=== PATIENT | female | born 1975 | race American Indian/Alaskan Native ===

== ENCOUNTER 2018-07-04 22:13 | Emergency (ER) | payer MEDICARE, SELFPAY ==
[2018-07-04 22:21] VITALS: BP 158/80; PULSE 91; RESP 16; TEMP 36.8; O2SAT 98; BMI 31.2
[2018-07-04 22:45] LABS: Bacteria Urine Few (2-10); Culture Indicated Urine Cult Not Indicated; RBC Urine 1-5/HPF (0-5/HPF); Squamous Epithelial Cell Urine 1-5 /HPF; WBC Urine 0-1/HPF (0-5/HPF)
[2018-07-04] MEDS: IBUPROFEN 400 MG TABLET 800 MG PO (22:45)
--- NOTE | 2018-07-04 22:46 | ED_ITS ---
HPI - Female Genitourinary General Chief complaint: Urogenital-Female Stated complaint: THINKS KIDNEY INFECTION Time Seen by Provider: 07/04/18 22:24 Source: patient Mode of arrival: ambulatory Limitations: no limitations History of Present Illness HPI Narrative: this a 42-year-old female comes to the emergency department with complaint of back /abdominal pain. Patient states that starting yesterday she has had some pain kind of in the left back flank area that radiates down towards her knee. She has not had any weakness or numbness. Today she also had 1 episode of cramping suprapubically. When she was about to urinate. Patient has not had dysuria, she has had maybe some frequency but only today. No incontinence, no urgency. No fevers, no nausea or vomiting. Patient had bladder infections in the past and states she does not typically have normal symptoms. She has not taken anything for pain today. She does take Plaquenil, has a history of lupus. Related Data Previous Rx's Medication Instructions Recorded penicillin V potassium 500 mg PO Q6H 7 Days #0 tab 04/23/16 Allergies Allergy/AdvReac Type Severity Reaction Status Date / Time cyclobenzaprine Allergy Unknown Verified 07/04/18 22:24 [From FLEXERIL] methocarbamol [METHOCARBAMOL] Allergy Unknown Verified 07/04/18 22:24 tramadol [TRAMADOL] Allergy Unknown Verified 07/04/18 22:24 acetaminophen Allergy Verified 07/04/18 22:24 [From Darvocet-N] propoxyphene Allergy Verified 07/04/18 22:24 [From Darvocet-N] Review of Systems Review of Systems All systems reviewed & are unremarkable except as noted in HPI and below Constitutional Denies chills and Denies fever(s) Cardiovascular Denies chest pain and Denies dyspnea Respiratory Denies dyspnea Gastrointestinal Gastrointestinal: Reports abdominal pain, Denies change in bowel habits, Reports cramping ( 1 time suprapubic), Denies diarrhea, Denies nausea and Denies vomiting Genitourinary Denies abnormal vaginal bleeding, Denies urinary frequency, Denies dysuria, Reports flank pain ( left back), Denies urinary hesitancy, Reports urinary urgency and Denies vaginal discharge Musculoskeletal Denies abnormal gait, Reports back pain, Denies muscle weakness, Reports radiating pain into limb ( left leg) and Denies tingling Neurologic Denies abnormal gait and Denies tingling Exam Narrative Exam Narrative: GENERAL: Alert and oriented x three, Well-nourished, well- appearing female in mild distress. HEENT: Head normocephalic, atraumatic, EOMI, pupils reactive, face symmetric, moist mucous membranes NECK: Supple, full range of motion CARDIOVASCULAR: Regular rate and rhythm without murmurs, rubs or gallops. RESPIRATORY: Breath sounds equal bilaterally, no wheezes rales or rhonchi. ABDOMEN: Soft, nontender. Normoactive bowel sounds all 4 quadrants. No guarding or rebound, rigidity, no mass : No CVA tenderness BACK: No cervical, thoracic or lumbar vertebral point tenderness. Patient has normal range of motion. Patient's gait is normal. Muscle strength is 5/5 in lower extremities EXTREMITIES: Normal range of motion, no clubbing or edema. Neurovascularly intact NEUROLOGICAL: Cranial nerves II through XII grossly intact. Moving all extremities SKIN: Warm, dry, no petechiae, no rashes or lesions. Initial Vital Signs Initial Vital Signs: Vital Signs Temperature 98.2 F 07/04/18 22:21 Pulse Rate 91 H 07/04/18 22:21 Respiratory Rate 16 07/04/18 22:21 Blood Pressure 158/80 H 07/04/18 22:21 Pulse Oximetry 98 07/04/18 22:21 Course Orders Ordered: ED Orders 07/04/18 22:20 Urine Microscopic Stat Discontinued Medications Ibuprofen (Advil) 800 mg PO NOW ONE Stop: 07/04/18 22:41 Last Admin: 07/04/18 22:45 Dose: 800 mg Vital Signs - 8 hr 07/04/18 22:21 07/04/18 23:27 Temperature 98.2 F Pulse Rate 91 H 73 Respiratory Rate 16 11 L Blood Pressure 158/80 H 133/76 Pulse Oximetry 98 99 MDM - Female Genitourinary Lab Data Lab Results 07/04/18 Range/Units 22:20 Urine RBC 1-5/hpf (0-5/HPF) Urine WBC 0-1/hpf (0-5/HPF) Ur Squamous Epith Cells 1-5 /hpf Urine Bacteria Few (2-10) H (None) Ur Culture Indicated? Cult not indicated Micro UA Comment Not Reportable Point of Care Testing Test Results Negative Urine Dip Bedside Urine Glucose Negative Bedside Urine Bilirubin - Negative Bedside Urine Ketone - Negative Urine Specific [place] 1.030 Bedside Urine Occult Blood ++ Bedside Urine pH 6.0 Bedside Urine Protein - Negative Bedside Urine Urobilinogen - Negative Bedside Urine Nitrite - Negative Bedside Urine Leukocytes - Negative Esterase Discharge Plan Departure Patient Disposition: Home Clinical Impression: Back pain Discharge Date/Time: 07/04/18 23:27 Interventions: ED Discharge Assessment Last Done: 07/04/18 23:27 Instructions: DI for Back Pain With Sciatica Activity Restrictions/Additional Instructions: Follow-up with primary care physician in the next 2-3 days for recheck. You may continue ibuprofen up to 800 mg every 8 hr as needed for pain. You may also take Tylenol up to a 1000 mg every 8 hr as needed for pain. Continue your home medications as prescribed. Return to the emergency department for fevers greater than 100.4, rapidly worsening pain, weakness or numbness of her extremities or difficulty with movement, persistent vomiting, black or bloody stools or other new or concerning symptoms. Prescriptions: No Action penicillin V potassium 500 MG tablet 500 mg PO Q6H 7 Days Qty: 0 RF: 0
[2018-07-04 23:27] VITALS: BP 133/76; PULSE 73; RESP 11; O2SAT 99
== END 2018-07-04 23:27 | disposition home or self-care (01) ==
PROVIDERS: Emergency Provider Emergency Medicine
DX: M54.9 Dorsalgia, unspecified (principal)
CPT/HCPCS: 81003; 81015; 81025; 99283

== ENCOUNTER 2018-08-04 07:29 | Emergency (ER) | payer MEDICARE, MEDICAID, SELFPAY ==
[2018-08-04 07:41] VITALS: BP 95/38; PULSE 84; RESP 14; TEMP 36.6; O2SAT 100; BMI 31.9
[2018-08-04 07:45] VITALS: BP 94/47; PULSE 69; RESP 17; O2SAT 100
[2018-08-04] MEDS: SODIUM CHLORIDE 0.9% 1,000 ML 1000 ML IV ×2 (07:46→08:36)
[2018-08-04 07:47] LABS: Add Manual Diff / Slide Review NO; Basophils Percent Auto 0.6 % (0-2); Eosinophils Percent Auto 2.7 % (2-4); Hematocrit 33.7 % (36-46); Hemoglobin 11.5 g/dL (12.0-16.0); Lymphocytes Percent Auto 28.3 % (25-40); Mean Corpuscular HGB Conc 34.2 % (30-36); Mean Corpuscular Hemoglobin 30.4 PG (26-34); Monocytes Percent Auto 7.2 % (3-14); Neutrophils Absolute Auto 7500 /uL (3000-5900); Neutrophils Percent Auto 61.2 % (50-75); Platelet Count 367 X10^3/uL (150-400); Red Blood Cell Count 3.78 X10^6/uL (4.0-5.2); Red Cell Distribution Width 14.4 % (11.6-14.8); White Blood Cell Count 12.3 X10^3/uL (4.5-11.0)
--- NOTE | 2018-08-04 07:48 | ED_ITS ---
HPI - Overdose General Chief Complaint: Toxicology Problem Stated Complaint: Overdose Time Seen by Provider: 08/04/18 07:29 Source: patient and EMS Mode of arrival: EMS Limitations: altered mental status History of Present Illness HPI Narrative: Patient is brought by EMS after family found her to be heavily sedated. Patient was given Narcan by the family, after which she admitted to recreationally snorting Percocet which she is worried was laced with fentanyl. Family called EMS, who gave the patient another mg of Narcan IV, and states that although the patient has been arousable and route, she did not really improve after their dose Narcan. Medics state that the patient is heavily drowsy if not being actively stimulated. Patient denies taking any other substances; she states that she uses Percocet regularly but not necessarily an every day basis. She denies drinking alcohol or using any other drugs such as methamphetamines or heroin, either concurrent with the episode tonight or on other occasions. She is not sure what time she took the Percocet. Patient denies any medical problems; she states she does not take any medications for anything on a regular basis. She has not been ill with anything recently she states. No chest pain, shortness of breath, nausea, vomiting, diarrhea, cough, fevers or other signs of illness. No other complaints at this time. Related Data Home Medications Medication Instructions Recorded Confirmed hydroxychloroquine 400 mg PO DAILY 08/04/18 hydroxyzine pamoate 50 mg PO TID PRN 08/04/18 08/04/18 tizanidine 4 mg PO BID PRN 08/04/18 08/04/18 tizanidine 8 mg PO BEDTIME PRN 08/04/18 08/04/18 zolpidem 5 mg PO BEDTIME PRN 08/04/18 08/04/18 Allergies Allergy/AdvReac Type Severity Reaction Status Date / Time cyclobenzaprine Allergy Unknown Verified 08/04/18 07:47 [From FLEXERIL] methocarbamol [METHOCARBAMOL] Allergy Unknown Verified 08/04/18 07:47 tramadol [TRAMADOL] Allergy Unknown Verified 08/04/18 07:47 acetaminophen Allergy Verified 08/04/18 07:47 [From Darvocet-N] propoxyphene Allergy Verified 08/04/18 07:47 [From Darvocet-N] Review of Systems Review of Systems All systems reviewed & are unremarkable except as noted in HPI and below Constitutional Denies chills, Denies fever(s), Denies lethargy and Denies weakness Eyes Denies change in vision, Denies eye discharge, Denies irritation and Denies loss of vision ENT Ears, Nose, Mouth, and Throat: Denies change in voice, Denies neck pain and Denies sore throat Cardiovascular Denies chest pain, Denies irregular heart rhythm, Denies lightheadedness, Denies palpitations, Denies dyspnea, Denies dyspnea on exertion and Denies orthopnea Respiratory Denies cough, Denies dyspnea, Denies dyspnea on exertion and Denies wheezing Gastrointestinal Gastrointestinal: Denies abdominal pain, Denies change in bowel habits, Denies diarrhea, Denies nausea and Denies vomiting Genitourinary Denies hematuria, Denies flank pain, Denies urinary incontinence and Denies urinary urgency Musculoskeletal Denies neck pain Integumentary/Breasts Denies pruritus, Denies erythema, Denies rash and Denies wounds Neurologic Denies confusion, Denies loss of vision and Denies weakness Psychiatric Denies anxiety, Denies confusion, Denies depression, Denies homicidal ideation and Denies suicidal ideation Endocrine Denies palpitations Hematologic/Lymphatic Denies easy bruising Allergic/Immunologic Denies wheezing PFSH Medical History Substance abuse (Acute) Surgical History No pertinent past surgical history (Acute) Social History Smoking Status: Current every day smoker alcohol intake: never substance use type: painkillers Exam Initial Vital Signs Initial Vital Signs: Vital Signs Temperature 97.8 F 08/04/18 07:41 Pulse Rate 84 08/04/18 07:41 Respiratory Rate 14 08/04/18 07:41 Blood Pressure 95/38 L 08/04/18 07:41 Pulse Oximetry 100 08/04/18 07:41 Const General: cooperative and well developed Nutritional Appearance: well nourished Orientation: awake and confused (Appears to partly be due to heavy drowsiness.) Other: Patient is heavily drowsy, but does arouse and answer questions with short answers. HENMT Head: normocephalic and atraumatic Ears: external ears normal and TM's normal bilaterally Nose: external nose normal and No nasal discharge Face and sinus: sinuses nontender, face symmetric, no sinus tenderness and No dry mucous membranes Mouth: oral mucosae normal and moist mucous membranes Teeth and gingiva: dentition normal Throat: tonsils normal and uvula midline Eyes General: appearance normal, both eyes and all related structures Eyelids: eyelids normal Conjunctivae: conjunctivae normal Sclera: sclerae normal Pupils: PERRL EOM: EOM intact bilaterally Neck Neck: normal visual inspection, trachea midline, No lymphadenopathy, No midline deformity and No JVD Lymphatic: No lymphedema Chest Chest: normal inspection of the chest Resp Effort & Inspection: normal respiratory effort, able to speak in complete sentences, no respiratory distress and no use of accessory muscles Auscultation: clear to auscultation bilaterally, no rales, no rhonchi and no wheezes Cardio Rate: regular rate Rhythm: regular rhythm Heart Sounds: no click, no gallops, no murmurs and no rubs Pulses: normal peripheral pulses GI Inspection: non-distended Palpation: soft, no hepatosplenomegaly, No guarding, No pulsatile mass and No tender Auscultation: normal bowel sounds Back/Spine/Pelvis Back: No CVA tenderness Cervical Spine: cervical ROM normal and No pain with cervical ROM Thoracic/Lumbar Spine: thoracic and lumbar spine normal to inspection Skin General: no rashes or lesions noted, No jaundice and No petechiae Neuro General: awake and no focal motor deficits Speech: speech normal Other: Heavy drowsiness, as noted above. Extrem General: full ROM, no clubbing, cyanosis or edema, no pedal edema and no calf tenderness Psych Appearance: well kempt Mental Status: mental status grossly normal Attitude: cooperative Thought Content: normal and suicidality Judgment: judgment good Course Course Narrative: The patient is observed in the emergency department, until she was found to be more awake and family had arrived. We have discussed that outpatient intervention to help with her substance abuse may be helpful to the patient. Patient and her family expressed understanding. Patient is stable for discharge home. The usual indications for return of been discussed. Orders Ordered: Discontinued Medications Baclofen (Lioresal) 5 mg PO NOW ONE Stop: 08/04/18 08:05 Last Admin: 08/04/18 08:22 Dose: Sodium Chloride (Normal Saline 0.9%) 1,000 mls @ 1,000 mls/hr IV BOLUS ONE Stop: 08/04/18 08:38 Last Infusion: 08/04/18 08:34 Dose: 0 mls/hr Admin: 08/04/18 07:46 Dose: 1,000 mls/hr Sodium Chloride (Normal Saline 0.9%) 1,000 mls @ 1,000 mls/hr IV BOLUS PRN PRN Reason: Fluid replacement Last Infusion: 08/04/18 09:30 Dose: 0 mls/hr Admin: 08/04/18 08:36 Dose: 1,000 mls/hr Lamotrigine (Lamictal) 150 mg PO NOW ONE Stop: 08/04/18 08:05 Last Admin: 08/04/18 08:21 Dose: Pantoprazole Sodium (Protonix) 20 mg PO NOW ONE Stop: 08/04/18 08:05 Last Admin: 08/04/18 08:21 Dose: Venlafaxine HCl (Effexor Xr) 75 mg PO DAILY NITA Vital Signs - 8 hr 08/04/18 07:41 08/04/18 07:45 08/04/18 08:02 Temperature 97.8 F Pulse Rate 84 69 81 Respiratory Rate 14 17 14 Blood Pressure 95/38 L Blood Pressure [Left Arm] 94/47 L 85/39 L Pulse Oximetry 100 100 100 08/04/18 08:22 08/04/18 08:30 Temperature Pulse Rate 72 74 Respiratory Rate 17 16 Blood Pressure Blood Pressure [Left Arm] 85/46 L 82/43 L Pulse Oximetry 100 100 MDM - Overdose Medical Records Attestation: I reviewed the patient's medical records. Lab Data Attestation: I reviewed the patient's lab results. Result diagrams: 08/04/18 07:25 08/04/18 07:25 Lab Results 08/04/18 08/04/18 08/04/18 Range/Units 07:25 07:25 07:25 WBC 12.3 H (4.5-11.0) X10^3/uL RBC 3.78 L (4.0-5.2) X10^6/uL Hgb 11.5 L (12.0-16.0) g/dL Hct 33.7 L (36-46) % MCV 89.0 (80-100) fL MCH 30.4 (26-34) PG MCHC 34.2 (30-36) % RDW 14.4 (11.6-14.8) % Plt Count 367 (150-400) X10^3/uL Neut % (Auto) 61.2 (50-75) % Lymph % (Auto) 28.3 (25-40) % [place] % (Auto) 7.2 (3-14) % Eos % (Auto) 2.7 (2-4) % Baso % (Auto) 0.6 (0-2) % Neut # (Auto) 7500 H (8001-8434) /uL Sodium 138 (137-145) mmol/L Potassium 3.9 (3.4-5.1) mmol/L Chloride 101 (98-107) mmol/L Carbon Dioxide 25 (22-32) mmol/L BUN 10 (7-17) mg/dL Creatinine 0.80 (0.52-1.04) mg/dL Estimated GFR > 60.0 (>60) mL/min BUN/Creatinine Ratio 12.5 (6-22) Glucose 94 (70-100) mg/dL Calcium 8.6 (8.4-10.2) mg/dL Total Bilirubin 0.3 (0.2-1.3) mg/dL AST 30 (14-36) IU/L ALT 27 (9-52) IU/L Alkaline Phosphatase 79 (38-126) U/L Total Protein 7.4 (6.3-8.2) g/dL Albumin 4.2 (3.5-5.0) g/dL Globulin 3.2 (1.7-4.1) g/dL Albumin/Globulin Ratio 1.3 (1.0-2.8) Urine Opiates Screen (Negative) Ur Oxycodone Screen (Negative) Urine Methadone Screen (Negative) Ur Barbiturates Screen (Negative) U Tricyclic Antidepress (Negative) Ur Phencyclidine Scrn (Negative) Ur Amphetamines Screen (Negative) U Methamphetamines Scrn (Negative) Ur MDMA Scrn (Ecstasy) (Negative) U Benzodiazepines Scrn (Negative) Urine Cocaine Screen (Negative) U Marijuana (THC) Screen (Negative) Ethyl Alcohol < 10 mg/dL 08/04/18 Range/Units 10:00 WBC (4.5-11.0) X10^3/uL RBC (4.0-5.2) X10^6/uL Hgb (12.0-16.0) g/dL Hct (36-46) % MCV (80-100) fL MCH (26-34) PG MCHC (30-36) % RDW (11.6-14.8) % Plt Count (150-400) X10^3/uL Neut % (Auto) (50-75) % Lymph % (Auto) (25-40) % [place] % (Auto) (3-14) % Eos % (Auto) (2-4) % Baso % (Auto) (0-2) % Neut # (Auto) (9631-3298) /uL Sodium (137-145) mmol/L Potassium (3.4-5.1) mmol/L Chloride (98-107) mmol/L Carbon Dioxide (22-32) mmol/L BUN (7-17) mg/dL Creatinine (0.52-1.04) mg/dL Estimated GFR (>60) mL/min BUN/Creatinine Ratio (6-22) Glucose (70-100) mg/dL Calcium (8.4-10.2) mg/dL Total Bilirubin (0.2-1.3) mg/dL AST (14-36) IU/L ALT (9-52) IU/L Alkaline Phosphatase (38-126) U/L Total Protein (6.3-8.2) g/dL Albumin (3.5-5.0) g/dL Globulin (1.7-4.1) g/dL Albumin/Globulin Ratio (1.0-2.8) Urine Opiates Screen Positive H (Negative) Ur Oxycodone Screen Positive H (Negative) Urine Methadone Screen Negative (Negative) Ur Barbiturates Screen Negative (Negative) U Tricyclic Antidepress Negative (Negative) Ur Phencyclidine Scrn Negative (Negative) Ur Amphetamines Screen Negative (Negative) U Methamphetamines Scrn Negative (Negative) Ur MDMA Scrn (Ecstasy) Negative (Negative) U Benzodiazepines Scrn Negative (Negative) Urine Cocaine Screen Negative (Negative) U Marijuana (THC) Screen Negative (Negative) Ethyl Alcohol mg/dL Discharge Plan Departure Patient Disposition: Home Clinical Impression: Substance abuse Discharge Date/Time: 08/04/18 10:35 Interventions: ED Discharge Assessment Last Done: 08/04/18 10:14 Instructions: DI for Drug Overdose in Adults Activity Restrictions/Additional Instructions: Please consider getting help with your drug abuse. Prescriptions: No Action tizanidine 4 mg tablet 4 mg PO BID PRN (Reason: Muscle Spasm) RF: 0 tizanidine 4 mg tablet 8 mg PO BEDTIME PRN (Reason: Spasms) RF: 0 zolpidem 5 mg tablet 5 mg PO BEDTIME PRN (Reason: Sleep) RF: 0 hydroxychloroquine 200 mg tablet 400 mg PO DAILY RF: 0 hydroxyzine pamoate 25 mg capsule 50 mg PO TID PRN (Reason: Anxiety) RF: 0 Referrals: [facility] [Provider Group]
[2018-08-04 07:53] LABS: Alanine Aminotransferase 27 IU/L (9-52); Albumin 4.2 g/dL (3.5-5.0); Albumin Globulin Ratio 1.3 (1.0-2.8); Alkaline Phosphatase 79 U/L (38-126); Aspartate Aminotransferase 30 IU/L (14-36); BUN Creatinine Ratio 12.5 (6-22); Bilirubin Total 0.3 mg/dL (0.2-1.3); Blood Urea Nitrogen 10 mg/dL (7-17); Calcium 8.6 mg/dL (8.4-10.2); Carbon Dioxide 25 mmol/L (22-32); Chloride 101 mmol/L (98-107); Estimated Glomerular Filt Rate > 60.0 mL/min (>60); Ethanol (ETOH) < 10 mg/dL; Globulin 3.2 g/dL (1.7-4.1); Glucose 94 mg/dL (70-100); HEMOLYSIS < 15 (0-50); Potassium 3.9 mmol/L (3.4-5.1); Sodium 138 mmol/L (137-145); Total Protein 7.4 g/dL (6.3-8.2)
[2018-08-04 08:02] VITALS: BP 85/39; PULSE 81; RESP 14; O2SAT 100
[2018-08-04 08:22] VITALS: BP 85/46; PULSE 72; RESP 17; O2SAT 100
[2018-08-04 08:30] VITALS: BP 82/43; PULSE 74; RESP 16; O2SAT 100
--- NOTE | 2018-08-04 08:40 | PC.NURSE ---
Pt arouses to touch and voice. Sleeping soundly otherwise. BP is continued low but fluids continued to run wide open. Maintains spO2 at 100% and RR 14-18.
[2018-08-04 10:06] LABS: Urine Amphetamines Negative (Negative); Urine Barbiturates Negative (Negative); Urine Benzodiazepines Negative (Negative); Urine Cocaine Negative (Negative); Urine MDMA Negative (Negative); Urine Methadone Negative (Negative); Urine Methamphetamines Negative (Negative); Urine Morphine/Opi cutoff 2000 Positive (Negative); Urine Oxycodone Positive (Negative); Urine Phencyclidine Negative (Negative); Urine THC Negative (Negative); Urine Tricyclic Antidepressant Negative (Negative)
[2018-08-04 10:14] VITALS: BP 101/44; PULSE 71; RESP 16; O2SAT 99
== END 2018-08-04 10:35 | disposition home or self-care (01) ==
PROVIDERS: Emergency Provider Emergency Medicine
DX: F19.10 Other psychoactive substance abuse, uncomplicated (principal)
CPT/HCPCS: 80053; 80305; 80320; 85025; 96360; 96361; 99284

== ENCOUNTER → 2018-10-01 17:53 | Outpatient (CLI) | payer MEDICARE, MEDICAID, SELFPAY ==
--- NOTE | 2018-10-01 17:56 | DI.RAD.S_ITS ---
PROCEDURE: XR ELBOW LT MIN 3V INDICATIONS: l arm pain from fall TECHNIQUE: 3 views of the elbow were acquired. COMPARISON: None. FINDINGS: Bones: No fractures or dislocations. No suspicious bony lesions. Soft tissues: No elbow joint effusion. No suspicious soft tissue calcifications. IMPRESSION: No acute left elbow fracture or dislocation. Consider followup radiographs in 7-10 days if there is continued clinical concern. Dictated by: Sunny Donnelly M.D. on 10/01/2018 at 19:39 Approved by: Sunny Donnelly M.D. on 10/01/2018 at 19:42
--- NOTE | 2018-10-01 17:56 | DI.RAD.S_ITS ---
PROCEDURE: XR WRIST LT MIN 3V INDICATIONS: l arm pain from fall TECHNIQUE: 4 views of the wrist were acquired. COMPARISON: None. FINDINGS: Bones: No fractures or dislocations. No suspicious bony lesions. Scaphoid view: Scaphoid appears intact. Soft tissues: No suspicious soft tissue calcifications. IMPRESSION: No acute fracture or dislocation of the left wrist. Consider followup radiographs in 7-10 days if there is continued clinical concern. Dictated by: Sunny Donnelly M.D. on 10/01/2018 at 19:43 Approved by: Sunny Donnelly M.D. on 10/01/2018 at 19:45
--- NOTE | 2018-10-01 17:56 | DI.RAD.S_ITS ---
PROCEDURE: XR HAND LT MIN 3V INDICATIONS: l arm pain from fall TECHNIQUE: 3 views of the hand(s) acquired. COMPARISON: None. FINDINGS: Bones: No fractures or dislocations. Carpal bones are normally aligned. No suspicious bony lesions. Soft tissues: No suspicious soft tissue calcifications. IMPRESSION: No acute fracture or dislocation of the left hand. Consider follow up radiographs in 7-10 days if there is continued clinical concern. Dictated by: Sunny Donnelly M.D. on 10/01/2018 at 19:45 Approved by: Sunny Donnelly M.D. on 10/01/2018 at 19:47
== END ==
PROVIDERS: Visit Provider Physician Assistant
DX: M79.602 Pain in left arm (principal)
CPT/HCPCS: 73080; 73110; 73130

== ENCOUNTER 2019-07-15 04:31 | Emergency (ER) | payer MEDICARE, MEDICAID, SELFPAY ==
[2019-07-15 04:38] VITALS: BP 140/96; PULSE 100; RESP 18; TEMP 36.1; O2SAT 96
--- NOTE | 2019-07-15 04:46 | ED_ITS ---
HPI - Allergic Reaction General Chief complaint: Allergic Reaction Stated complaint: Red Rash all over Time Seen by Provider: 07/15/19 04:45 Source: patient Mode of arrival: Ambulatory Limitations: no limitations History of Present Illness HPI narrative: 43-year-old female here for evaluation of a rash to her bilateral upper legs into her abdomen. She states that she 1st noticed it when she sat down to go to the bathroom. This everything like this before. No problems breathing. No itching. Related Data Home Medications Medication Instructions Recorded Confirmed hydroxyzine pamoate 50 mg PO TID PRN 08/04/18 10/01/18 tizanidine 4 mg PO BID PRN 08/04/18 10/01/18 tizanidine 8 mg PO BEDTIME PRN 08/04/18 10/01/18 zolpidem 5 mg PO BEDTIME PRN 08/04/18 10/01/18 methotrexate sodium 10 mg tablet 10 mg PO QWEEK 10/01/18 10/01/18 omeprazole 20 mg capsule,delayed 20 mg PO DAILY 10/01/18 10/01/18 release Allergies Allergy/AdvReac Type Severity Reaction Status Date / Time cyclobenzaprine Allergy Unknown Verified 10/01/18 17:22 [From FLEXERIL] methocarbamol [METHOCARBAMOL] Allergy Unknown Verified 10/01/18 17:22 tramadol [TRAMADOL] Allergy Unknown Verified 10/01/18 17:22 acetaminophen Allergy Verified 10/01/18 17:22 [From Darvocet-N] propoxyphene Allergy Verified 10/01/18 17:22 [From Darvocet-N] Review of Systems Constitutional Constitutional: Denies fever(s) Cardiovascular Cardiovascular: Denies dyspnea Respiratory Respiratory: Denies dyspnea Integumentary/Breasts Comments: Rash on legs and abdomen Neurologic Neurologic: Denies behavioral changes Psychiatric Psychiatric: Denies behavioral changes Patient History Medical History Substance abuse (Acute) Surgical History No pertinent past surgical history (Acute) Social History Smoking Status: Current every day smoker alcohol intake: never substance use type: painkillers alcohol intake frequency: 0-2 drinks per day Substance Use Type: marijuana, painkillers and club/mark up designer drugs Exam Initial Vital Signs Initial Vital Signs: Vital Signs Temperature 97 F L 07/15/19 04:38 Pulse Rate 100 H 07/15/19 04:38 Respiratory Rate 18 07/15/19 04:38 Blood Pressure 140/96 H 07/15/19 04:38 Pulse Oximetry 96 07/15/19 04:38 Const General: cooperative and comfortable Skin Other: Patient with less than 10 subcentimeter areas what appeared to be small urticaria on her abdomen. She states this is what is located on her upper legs. Neuro General: alert and awake Extrem General: capillary refill normal Psych Appearance: grossly normal and well kempt Course Orders Ordered: Discontinued Medications Diphenhydramine HCl (Benadryl) 25 mg PO NOW ONE Stop: 07/15/19 04:47 Last Admin: 07/15/19 04:51 Dose: 25 mg Documented by: LATRICE Vital Signs Vital signs: Vital Signs - 8 hr 07/15/19 04:38 Temperature 97 F L Pulse Rate 100 H Respiratory Rate 18 Blood Pressure 140/96 H Pulse Oximetry 96 MDM - Allergic Reaction MDM Narrative Medical decision making narrative: Physical exam is not consistent with anaphylaxis. She has very small areas which could potentially be urticaria however this is not definitive. She was given a Benadryl here in the ER. Will hold on any steroids for now. Patient was given return precautions and follow- up instructions. She expressed understanding and agreement plan for Discharge Plan Departure Patient Disposition: Home Clinical Impression: Rash Instructions: DI for Rash Activity Restrictions/Additional Instructions: Recommend that you use Benadryl. You can take 25-50 mg of Benadryl every 6 hours as needed. You can also use some topical hydrocortisone cream that you can buy [id number] over the specific areas if they seem to itch. Return to the emergency department for any new or worsening symptoms Prescriptions: No Action methotrexate sodium 10 mg tablet 10 mg PO QWEEK RF: 0 omeprazole 20 mg capsule,delayed release(DR/EC) 20 mg PO DAILY RF: 0 tizanidine 4 mg tablet 4 mg PO BID PRN (Reason: Muscle Spasm) RF: 0 tizanidine 4 mg tablet 8 mg PO BEDTIME PRN (Reason: Spasms) RF: 0 zolpidem 5 mg tablet 5 mg PO BEDTIME PRN (Reason: Sleep) RF: 0 hydroxyzine pamoate 25 mg capsule 50 mg PO TID PRN (Reason: Anxiety) RF: 0
[2019-07-15] MEDS: diphenhydrAMINE 25 MG TABLET PO (04:51)
[2019-07-15 05:00] VITALS: BP 132/90; PULSE 91; RESP 16; O2SAT 97
== END 2019-07-15 05:00 | disposition home or self-care (01) ==
LOC: ED 05:14
PROVIDERS: Emergency Provider Emergency Medicine
DX: R21 Rash and other nonspecific skin eruption (principal)
CPT/HCPCS: 99282

== ENCOUNTER 2023-06-26 10:14 | Emergency (ER) | payer MEDICARE, MEDICAID, SELFPAY ==
[2023-06-26 10:32] VITALS: BP 123/59; PULSE 90; RESP 20; TEMP 36.6; O2SAT 100; BMI 35.0
--- NOTE | 2023-06-26 11:02 | ED.RECABL ---
HPI - Recheck/Abnormal Lab/Rx <Agustin Yadav PA-C - Last Filed: 06/26/23 11:14> General Chief Complaint: Recheck/Abnormal Lab/Rx Stated Complaint: severe heart burn Time Seen by Provider: 06/26/23 11:00 Source: patient Mode of arrival: Ambulatory History of Present Illness HPI narrative: This is a 47-year-old female presents to the emergency department due to ?pretty bad heartburn? onset this morning. She states that she feels a burning sensation coming up from her stomach up to her throat. Denies any chest pain, left arm pain, nausea, vomiting, abdominal pain, shortness of breath, or any other concerning signs or symptoms. Has taken Tums without significant relief. Related Data Home Medications Medication Instructions Recorded Confirmed hydroxyzine pamoate 25 mg capsule 50 mg PO TID PRN Anxiety 08/04/18 10/01/18 tizanidine 4 mg tablet 4 mg PO BID PRN Muscle Spasm 08/04/18 10/01/18 tizanidine 4 mg tablet 8 mg PO BEDTIME PRN Spasms 08/04/18 10/01/18 zolpidem 5 mg tablet 5 mg PO BEDTIME PRN Sleep 08/04/18 10/01/18 methotrexate sodium 10 mg tablet 10 mg PO QWEEK 10/01/18 10/01/18 omeprazole 20 mg capsule,delayed 20 mg PO DAILY 10/01/18 10/01/18 release Previous Rx's Medication Instructions Recorded pantoprazole 40 mg tablet,delayed 40 mg PO DAILY #14 tabs 06/26/23 release Allergies Allergy/AdvReac Type Severity Reaction Status Date / Time cyclobenzaprine Allergy Unknown Verified 06/26/23 10:37 [From FLEXERIL] methocarbamol [METHOCARBAMOL] Allergy Unknown Verified 06/26/23 10:37 tramadol [TRAMADOL] Allergy Unknown Verified 06/26/23 10:37 acetaminophen Allergy Verified 06/26/23 10:37 [From Darvocet-N] propoxyphene Allergy Verified 06/26/23 10:37 [From Darvocet-N] Review of Systems <Agustin Yadav PA-C - Last Filed: 06/26/23 11:14> Review of Systems Narrative: GENERAL: Denies chills, fatigue, malaise, fever, sweats. HEENT: Denies sinus pain, ear pain, sore throat, difficulty swallowing, dizziness. RESPIRATORY: Denies dyspnea, cough, wheezing, hemoptysis, sputum. CARDIOVASCULAR: Denies chest pain, palpitations, orthopnea, edema, GASTROINTESTINAL: Reports acid reflux, Denies nausea, vomiting, abdominal pain, diarrhea, constipation, melena. : Denies dysuria, frequency, incontinence, hematuria, urinary retention. MUSCULOSKELETAL: denies weakness, joint pain, or bony pain SKIN: Denies rash, skin lesions, or other NEUROLOGIC: Denies weakness, headache, numbness, change in speech, confusion, seizures, incoordination. PSYCHIATRIC: No concerning psychosocial issues. 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 HEAD: Atraumatic. Normocephalic. EYES: Pupils equal round and reactive. Extraocular motions intact. No scleral icterus. No injection or drainage. ENT: Nose without bleeding, purulent drainage. Throat without erythema, tonsillar hypertrophy or exudate. Airway patent. NECK: Trachea midline. Non tender CARDIOVASCULAR: Regular rate and rhythm without murmurs, gallops, or rubs. RESPIRATORY: Clear to auscultation. Breath sounds equal bilaterally. No wheezes, rales, or rhonchi. GASTROINTESTINAL: Abdomen soft, non-tender, nondistended. EXTREMITIES: No edema or joint tenderness. BACK: Nontender without deformity or crepitance. No flank tenderness. NEURO: AOx3. SKIN: No rash or erythema of visible areas Initial Vital Signs Initial Vital Signs: Vital Signs Temperature 97.9 F 06/26/23 10:32 Pulse Rate 90 06/26/23 10:32 Respiratory Rate 20 06/26/23 10:32 Blood Pressure 123/59 L 06/26/23 10:32 Pulse Oximetry 100 06/26/23 10:32 Oxygen Delivery Method Room Air 06/26/23 10:32 <Sunni Zafar DO - Last Filed: 06/27/23 20:58> Initial Vital Signs Initial Vital Signs: Vital Signs Temperature 97.9 F 06/26/23 10:32 Pulse Rate 90 06/26/23 10:32 Respiratory Rate 20 06/26/23 10:32 Blood Pressure 123/59 L 06/26/23 10:32 Pulse Oximetry 100 06/26/23 10:32 Oxygen Delivery Method Room Air 06/26/23 10:32 Course <Agustin Yadav PA-C - Last Filed: 06/26/23 11:14> Vital Signs Vital signs: Vital Signs - 8 hr 06/26/23 10:32 Temperature 97.9 F Pulse Rate 90 Respiratory Rate 20 Blood Pressure 123/59 L Pulse Oximetry 100 Oxygen Delivery Method Room Air <DO Jocelin Cash Last Filed: 06/27/23 20:58> Vital Signs Vital signs: Vital Signs - 8 hr 06/26/23 10:32 Temperature 97.9 F Pulse Rate 90 Respiratory Rate 20 Blood Pressure 123/59 L Pulse Oximetry 100 Oxygen Delivery Method Room Air MDM - Recheck/Abnormal Lab/Rx <Agustin Yadav PA-C - Last Filed: 06/26/23 11:14> MDM Narrative Medical decision making narrative: MDM * differential diagnosis includes but not limited to GERD, ACS, PUD * Prior records reviewed: Patient was last seen here 4 years ago for a rash. Discharge with instructions to take Benadryl. * My lab interpretation: None obtained * My imgaing interpretation: None obtained * Clinical Decision Rules/Scores evaluated: None * Independent discussions with: None ED Course: This is a 47-year-old female presents emergency department due to suspected GERD. No concerning findings concerning for ACS as just chest pain, left arm pain, nausea, vomiting, or any other concerning signs or symptoms. We will trial a course of pantoprazole and advised her to follow up with the primary care provider. Shared Decision Making: Discussed plan with the patient who is comfortable with the plan. Social Considerations: None Disposition: Discharged home Discharge Plan Departure Patient Disposition: Home Clinical Impression: Acid reflux Activity Restrictions/Additional Instructions: Thank you for coming to the [facility] Emergency Department today. Please take oral medications prescribed in the should help with the symptoms. Please follow up with the primary care provider if this is ineffective. I hope you feel better soon. Please follow up with your primary care provider within a week if your symptoms continue. If you do not have a primary care provider please contact the [facility] Resource line at [phone]. They will ask some questions about your medical history and help you get set up with a provider in the community. Prescriptions: New pantoprazole 40 mg tablet,delayed release (DR/EC) 40 mg PO DAILY Qty: 14 0RF No Action methotrexate sodium 10 mg tablet 10 mg PO QWEEK omeprazole 20 mg capsule,delayed release(DR/EC) 20 mg PO DAILY tizanidine 4 mg tablet 4 mg PO BID PRN (Reason: Muscle Spasm) Patient Comments: take 1 tablet by mouth twice a day if needed and take 2 tablets at bedtime for muscle spasm tizanidine 4 mg tablet 8 mg PO BEDTIME PRN (Reason: Spasms) Patient Comments: take 1 tablet by mouth twice a day if needed and take 2 tablets at bedtime for muscle spasm zolpidem 5 mg tablet 5 mg PO BEDTIME PRN (Reason: Sleep) hydroxyzine pamoate 25 mg capsule 50 mg PO TID PRN (Reason: Anxiety) Patient Comments: take 2 capsules by mouth three times a day for anxiety or itching Stand Alone Forms: Patient Portal/API ED Sign-out <Sunni Zafar DO - Last Filed: 06/27/23 20:58> Cosign ED Attending [place] Attestation: I was immediately available in the department for consultation. Documentation has been reviewed.
[2023-06-26 11:20] VITALS: PULSE 88; RESP 18; O2SAT 98
== END 2023-06-26 11:25 | disposition home or self-care (01) ==
PROVIDERS: Emergency Provider Physician Assistant Medical
DX: K21.9 Gastro-esophageal reflux disease without esophagitis (principal)
CPT/HCPCS: 99281; 99283

== ENCOUNTER 2023-07-27 22:33 | Emergency (ER) | payer MEDICARE, SELFPAY ==
[2023-07-27 22:37] VITALS: BP 172/87; PULSE 91; RESP 18; TEMP 36.6; O2SAT 100; BMI 35.6
--- NOTE | 2023-07-27 22:53 | DI.CT.S_ITS ---
PROCEDURE: CT ABDOMEN PELVIS W CON INDICATIONS: midepigastric pain/nausea/vomiting TECHNIQUE: After the administration of intravenous contrast, axial sections acquired from the lung bases to the pubic symphysis. Coronal and sagittal reformats were performed. For radiation dose reduction, the following was used: automated exposure control, adjustment of mA and/or kV according to patient size. COMPARISON: [facility], CT, CT ABDOMEN PELVIS WITH CONTRAST, 07/23/2017, 2:49. FINDINGS: Image quality: Good Lower chest: Basal scarring and atelectasis. Small right Bochdalek's hernia. Small hiatal hernia. Patulous appearance of the distal esophagus is nonspecific. Normal heart size Solid organs: Subcentimeter lesions are too small to characterize in the liver, possibly cysts. Gallbladder is unremarkable. There is dilation of the biliary system, with CBD measuring up to 9 mm, increased from 2017. There is sludge versus small hyperdensities in the distal CBD. No splenomegaly. No adrenal nodules. No hydronephrosis or suspicious renal lesions. Vessels and lymph nodes: The main portal vein appears patent. No abdominal aortic aneurysm. No pathologic lymph nodes by size criteria. Bowel and peritoneum: No evidence of small bowel obstruction. Moderate fecal loading. The cecum appears flipped into right upper quadrant. No drainable abscess or pathologic ascites. Body wall: Unremarkable Pelvis: Bladder is unremarkable. Reproductive organs could be better evaluated on ultrasound, no gross abnormality on CT. Bones: Degenerative changes, no acute or suspicious osseous finding. IMPRESSION: Mild dilation of the biliary system, possible tiny hyperdensities versus sludge in the distal CBD. Consider correlation with LFTs and possible MRCP if indicated. Small hiatal hernia and patulous appearance of the esophagus. Consider endoscopic correlation if indicated in the setting of epigastric pain. Other findings as above. Dictated by: Jemal Whitten M.D. on 07/28/2023 at 1:28 Approved by: Jemal Whitten M.D. on 07/28/2023 at 1:35
--- NOTE | 2023-07-27 22:55 | ED.ABDPAIN ---
HPI - Abdominal Pain General Chief Complaint: Abdominal Pain Stated Complaint: stomach pain x 30 minutes Time Seen by Provider: 07/27/23 22:37 Source: patient and family Mode of arrival: Ambulatory History of Present Illness HPI narrative: 47-year-old female with history of lupus (stopped taking medications for this 3 years ago) presents by private vehicle from the [facility] for [facility], constant, midepigastric abdominal pain does not radiate. Associated nausea. Pain began approximately 30 minutes prior to arrival. Patient has never felt anything like this before. No medications taken prior to arrival. Related Data Home Medications Medication Instructions Recorded Confirmed hydroxyzine pamoate 25 mg capsule 50 mg PO TID PRN Anxiety 08/04/18 10/01/18 tizanidine 4 mg tablet 4 mg PO BID PRN Muscle Spasm 08/04/18 10/01/18 tizanidine 4 mg tablet 8 mg PO BEDTIME PRN Spasms 08/04/18 10/01/18 zolpidem 5 mg tablet 5 mg PO BEDTIME PRN Sleep 08/04/18 10/01/18 methotrexate sodium 10 mg tablet 10 mg PO QWEEK 10/01/18 10/01/18 omeprazole 20 mg capsule,delayed 20 mg PO DAILY 10/01/18 10/01/18 release Previous Rx's Medication Instructions Recorded pantoprazole 40 mg tablet,delayed 40 mg PO DAILY #14 tabs 06/26/23 release Allergies Allergy/AdvReac Type Severity Reaction Status Date / Time cyclobenzaprine Allergy Unknown Verified 06/26/23 10:37 [From FLEXERIL] methocarbamol [METHOCARBAMOL] Allergy Unknown Verified 06/26/23 10:37 tramadol [TRAMADOL] Allergy Unknown Verified 06/26/23 10:37 acetaminophen Allergy Verified 06/26/23 10:37 [From Darvocet-N] propoxyphene Allergy Verified 06/26/23 10:37 [From Darvocet-N] Review of Systems Review of Systems Narrative: Negative except as noted above Patient History Medical History (Updated 07/28/23 @ 03:10 by Rosario Schwartz MD) Rheumatoid arthritis Substance abuse Surgical History No pertinent past surgical history Social History Smoking Status: Current every day smoker alcohol intake: never substance use type: painkillers Smoking Status: Current every day smoker alcohol intake frequency: 0-2 drinks per day Substance Use 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: 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, 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 Exam Initial Vital Signs Initial Vital Signs: Vital Signs Temperature 97.8 F 07/27/23 22:37 Pulse Rate 91 H 07/27/23 22:37 Respiratory Rate 18 07/27/23 22:37 Blood Pressure 172/87 H 07/27/23 22:37 Pulse Oximetry 100 07/27/23 22:37 Oxygen Delivery Method Room Air 07/27/23 22:37 Const: Awake, alert, no acute distress, nontoxic appearing Cardiac: regular rate, regular rhythm RESP: unlabored, clear bilaterally, no wheezing GI: Atraumatic, soft, midepigastric tenderness to deep palpation without rebound or guarding MSK: Atraumatic, full range of motion, pulses equal Skin: Warm, Dry, intact, no rashes Neuro: AO x3, CN II-XII grossly intact, moves all extremities Course Orders Ordered: ED Orders 07/27/23 22:42 EKG-12 Lead Stat 07/27/23 22:53 CT abdomen pelvis w con Stat 07/27/23 22:57 Complete Blood Count AUTO DIFF Stat Comprehensive Metabolic Panel Stat Ethanol (ETOH) Stat Lipase Stat Troponin & CK Cardiac Panel Stat 07/28/23 00:21 Test Urine Stat Urinalysis and Microscopic Stat Urine Drug Screen, Rapid Stat Discontinued Medications Morphine Sulfate (Morphine 4 Mg/Ml Inj) 4 mg IV NOW ONE Stop: 07/27/23 22:54 Last Admin: 07/27/23 23:03 Dose: 4 mg Documented By: CORRINA Ondansetron HCl (Ondansetron 4 Mg Odt) 4 mg PO NOW PRN PRN Reason: Nausea And Vomiting Ondansetron HCl (Ondansetron 4 Mg/2 Ml Inj) 4 mg IV NOW PRN PRN Reason: Nausea And Vomiting Ondansetron HCl (Ondansetron 4 Mg/2 Ml Inj) 4 mg IV NOW ONE Stop: 07/27/23 22:54 Last Admin: 07/27/23 22:56 Dose: 4 mg Documented By: ZACARIAS Vital Signs Vital signs: Vital Signs - 8 hr 07/27/23 22:37 07/27/23 22:56 07/27/23 22:57 Temperature 97.8 F Pulse Rate 91 H 86 86 Respiratory Rate 18 12 24 Blood Pressure 172/87 H Pulse Oximetry 100 98 98 Oxygen Delivery Method Room Air Room Air 07/27/23 22:57 07/27/23 23:00 07/27/23 23:00 Temperature Pulse Rate 86 Respiratory Rate 14 Blood Pressure 132/73 129/67 Pulse Oximetry 99 Oxygen Delivery Method Room Air 07/27/23 23:30 07/27/23 23:30 07/28/23 00:00 Temperature Pulse Rate 87 85 Respiratory Rate 17 13 Blood Pressure 121/58 L Pulse Oximetry 94 93 Oxygen Delivery Method Room Air Room Air 07/28/23 00:00 07/28/23 00:30 07/28/23 00:30 Temperature Pulse Rate 89 Respiratory Rate 15 Blood Pressure 93/51 L 120/58 L Pulse Oximetry 96 Oxygen Delivery Method 07/28/23 01:09 07/28/23 01:10 07/28/23 01:10 Temperature Pulse Rate 91 H 89 Respiratory Rate Blood Pressure 115/59 L Pulse Oximetry 94 95 Oxygen Delivery Method Room Air Room Air 07/28/23 01:30 07/28/23 01:30 07/28/23 02:00 Temperature Pulse Rate 84 93 H Respiratory Rate Blood Pressure 116/57 L Pulse Oximetry 94 Oxygen Delivery Method Room Air 07/28/23 02:00 Temperature Pulse Rate Respiratory Rate Blood Pressure 103/50 L Pulse Oximetry Oxygen Delivery Method MDM - Abdominal Pain Differential Diagnosis Differential diagnosis: Likely abdominal pain, constipation and pancreatitis Lab Data 07/27/23 22:57 07/27/23 22:57 Labs: Lab Results 07/27/23 07/28/23 Range/Units 22:57 00:21 WBC 8.9 (4.5-11.0) X10^3/uL RBC 4.14 (4.0-5.2) X10^6/uL Hgb 12.9 (12.0-16.0) g/dL Hct 38.0 (36-46) % MCV 91.8 (80-100) fL MCH 31.1 (26-34) PG MCHC 33.9 (30-36) % RDW 13.3 (11.6-14.8) % Plt Count 300 (150-400) X10^3/uL Neut % (Auto) 46.2 L (50-75) % Lymph % (Auto) 44.0 H (25-40) % [place] % (Auto) 7.1 (3-14) % Eos % (Auto) 2.3 (2-4) % Baso % (Auto) 0.4 (0-2) % Neut # (Auto) 4100 (1117-6102) /uL Lymph # (Auto) 3900 (2547-4922) /uL [place] # (Auto) 600 (0-900) /uL Eos # (Auto) 200 (0-450) /uL Baso # (Auto) 0 (0-100) /uL Sodium 140 (137-145) mmol/L Potassium 3.6 (3.4-5.1) mmol/L Chloride 105 (98-107) mmol/L Carbon Dioxide 29 (22-32) mmol/L BUN 8 (7-17) mg/dL Creatinine 0.65 (0.52-1.04) mg/dL Estimated GFR > 60 (>60) mL/min BUN/Creatinine Ratio 12.3 (6-22) Glucose 108 H (70-100) mg/dL Calcium 9.2 (8.4-10.2) mg/dL Total Bilirubin 0.4 (0.2-1.3) mg/dL AST 41 H (14-36) IU/L ALT 22 (<35) IU/L Alkaline Phosphatase 74 (38-126) U/L Total Creatine Kinase 73 (30-135) U/L Troponin I < 0.012 (0.01-0.034) ng/mL Total Protein 8.1 (6.3-8.2) g/dL Albumin 4.2 (3.5-5.0) g/dL Globulin 3.9 (1.7-4.1) g/dL Albumin/Globulin Ratio 1.1 (1.0-2.8) Lipase 60 (23-300) U/L Urine Color Yellow Urine Appearance Clear Urine pH 5.0 (4.5-8.0) Ur Specific [place] <=1.005 (1.000-1.035) Urine Protein Negative (Negative) Urine Glucose (UA) Negative (Negative) g/dL Urine Ketones Negative (NEGATIVE) Urine Occult Blood 1+ H (Negative) Urine Nitrate Negative (Negative) Urine Bilirubin Negative (NEGATIVE) Urine Urobilinogen 0.2 (0.2) E.U./dL Ur Leukocyte Esterase Negative (NEGATIVE) Urine RBC 0-1/hpf (0-5/HPF) Urine WBC 0-1/hpf (0-5/HPF) Ur Squamous Epith Cells 0-1 /hpf (0-5/HPF) Urine Bacteria Occasional (0-1) (None) Ur Culture Indicated? Cult not indicated Urine Test Negative (Negative) U Opiates 300ng/mL cut Positive H (Negative) Ur Oxycodone Screen Negative (Negative) Urine Methadone Screen Negative (Negative) Ur Barbiturates Screen Negative (Negative) U Tricyclic Antidepress Negative (Negative) Ur Phencyclidine Scrn Negative (Negative) Ur Amphetamines Screen Negative (Negative) U Methamphetamines Scrn Negative (Negative) Ur MDMA Scrn (Ecstasy) Negative (Negative) U Benzodiazepines Scrn Negative (Negative) Urine Cocaine Screen Negative (Negative) U Marijuana (THC) Screen Positive H (Negative) Ethyl Alcohol < 10 ( - 10) mg/dL ECG Data Interpretation: Normal sinus rhythm, rate 89 beats per minute, normal intervals, normal axis, no ST T wave changes, no STEMI MDM Narrative Medical decision making narrative: Nontoxic appearing patient presenting for midepigastric abdominal pain. Vital signs reviewed, abdomen is soft, she does have reproducible tenderness to palpation in the midepigastric region without rebound or guarding. Laboratory work and imaging to be obtained. Laboratory work is reviewed, WBC 8.9, hemoglobin 12.9, creatinine 0.65, GFR > 60. T bili 0.4, AST 41, ALT 22, Alk phos 74 - no significant change from priors. CT of the abdomen and pelvis shows mild biliary system dilation when compared to prior from 2017 -recommended correlation with LFTs. Small hiatal hernia identified. Patient reassessed, resting comfortably, states that her pain feels much better than before. With normal laboratory work and improved exam highly unlikely to be cholecystitis at this time. Patient counseled on all lab and imaging findings. Recommended close follow up with primary care and possible referral to GI. Recommended low acid diet and OTC antacids. Discharge Plan Departure Patient Disposition: Home Clinical Impression: Abdominal pain Qualifiers: Abdominal location: epigastric Qualified Code(s): R10.13 - Epigastric pain Instructions: DI for Abdominal Pain-Adult Activity Restrictions/Additional Instructions: You were seen today for abdominal pain. Your laboratory work was normal. Your CT showed you may have some dilation of your biliary system compared to a scan from 2017, however your liver enzymes are normal. I recommend following up with your primary care doctor and a GI doctor if you continue to experience abdominal pains. Prescriptions: No Action methotrexate sodium 10 mg tablet 10 mg PO QWEEK omeprazole 20 mg capsule,delayed release(DR/EC) 20 mg PO DAILY tizanidine 4 mg tablet 4 mg PO BID PRN (Reason: Muscle Spasm) Patient Comments: take 1 tablet by mouth twice a day if needed and take 2 tablets at bedtime for muscle spasm tizanidine 4 mg tablet 8 mg PO BEDTIME PRN (Reason: Spasms) Patient Comments: take 1 tablet by mouth twice a day if needed and take 2 tablets at bedtime for muscle spasm zolpidem 5 mg tablet 5 mg PO BEDTIME PRN (Reason: Sleep) hydroxyzine pamoate 25 mg capsule 50 mg PO TID PRN (Reason: Anxiety) Patient Comments: take 2 capsules by mouth three times a day for anxiety or itching pantoprazole 40 mg tablet,delayed release (DR/EC) 40 mg PO DAILY Qty: 14 0RF Referrals: Damian Valenzuela MD [Non-Staff] - Stand Alone Forms: Patient Portal/API
[2023-07-27 22:56] VITALS: PULSE 86; RESP 12; O2SAT 98
[2023-07-27] MEDS: ONDANSETRON 4 MG/2 ML INJ IV (22:56)
[2023-07-27 22:57] VITALS: BP 132/73; PULSE 86; RESP 24; O2SAT 98
[2023-07-27 23:00] VITALS: BP 129/67; PULSE 86; RESP 14; O2SAT 99
[2023-07-27] MEDS: MORPHINE 4 MG/ML INJ IV (23:03)
[2023-07-27 23:07] LABS: Add Manual Diff / Slide Review NO; Basophils Absolute Auto 0 /uL (0-100); Basophils Percent Auto 0.4 % (0-2); Eosinophils Absolute Auto 200 /uL (0-450); Eosinophils Percent Auto 2.3 % (2-4); Hemoglobin 12.9 g/dL (12.0-16.0); Lymphocytes Absolute Auto 3900 /uL (1100-4500); Mean Corpuscular HGB Conc 33.9 % (30-36); Mean Corpuscular Hemoglobin 31.1 PG (26-34); Mean Corpuscular Volume 91.8 fL (80-100); Monocytes Absolute Auto 600 /uL (0-900); Monocytes Percent Auto 7.1 % (3-14); Neutrophils Absolute Auto 4100 /uL (1500-7000); Neutrophils Percent Auto 46.2 % (50-75); Platelet Count 300 X10^3/uL (150-400); Red Blood Cell Count 4.14 X10^6/uL (4.0-5.2); Red Cell Distribution Width 13.3 % (11.6-14.8); White Blood Cell Count 8.9 X10^3/uL (4.5-11.0)
[2023-07-27 23:30] VITALS: BP 121/58; PULSE 87; RESP 17; O2SAT 94
[2023-07-27 23:36] LABS: Alanine Aminotransferase 22 IU/L (<35); Albumin 4.2 g/dL (3.5-5.0); Albumin Globulin Ratio 1.1 (1.0-2.8); Alkaline Phosphatase 74 U/L (38-126); Aspartate Aminotransferase 41 IU/L (14-36); BUN Creatinine Ratio 12.3 (6-22); Bilirubin Total 0.4 mg/dL (0.2-1.3); Blood Urea Nitrogen 8 mg/dL (7-17); Calcium 9.2 mg/dL (8.4-10.2); Carbon Dioxide 29 mmol/L (22-32); Chloride 105 mmol/L (98-107); Creatine Kinase 73 U/L (30-135); Estimated Glomerular Filt Rate > 60 mL/min (>60); Ethanol (ETOH) < 10 mg/dL; Globulin 3.9 g/dL (1.7-4.1); Glucose 108 mg/dL (70-100); HEMOLYSIS < 15 (0-50); Lipase 60 U/L (23-300); Potassium 3.6 mmol/L (3.4-5.1); Sodium 140 mmol/L (137-145); Total Protein 8.1 g/dL (6.3-8.2)
[2023-07-27 23:47] LABS: Troponin I < 0.012 ng/mL (0.01-0.034)
[2023-07-28] VITALS: BP 93/51; PULSE 85; RESP 13; O2SAT 93
[2023-07-28 00:30] VITALS: BP 120/58; PULSE 89; RESP 15; O2SAT 96
[2023-07-28 00:36] LABS: Appearance Urine UA CLEAR; Bilirubin Urine UA NEGATIVE (NEGATIVE); Color Urine UA YELLOW; Glucose Urine UA NEGATIVE (Negative); Ketones Urine UA NEGATIVE (NEGATIVE); Leukocyte Esterase Urine UA NEGATIVE (NEGATIVE); Nitrite Urine UA NEGATIVE (Negative); Occult Blood Urine UA 1+ (Negative); Protein Urine UA NEGATIVE (Negative); Specific Gravity Urine UA <=1.005 (1.000-1.035); Urobilinogen Urine UA 0.2 E.U./dL (0.2)
[2023-07-28 00:43] LABS: Bacteria Urine Occasional (0-1); RBC Urine 0-1/HPF (0-5/HPF); Squamous Epithelial Cell Urine 0-1 /HPF (0-5/HPF); WBC Urine 0-1/HPF (0-5/HPF)
[2023-07-28 00:44] LABS: Culture Indicated Urine Cult Not Indicated; Pregnancy Test Urine Negative (Negative); UR Morphine/Opiate cutoff 300 Positive (Negative); Ur Creatinine Normal (Normal); Ur Specific Gravity Normal (Normal); Urine Amphetamines Negative (Negative); Urine Barbiturates Negative (Negative); Urine Benzodiazepines Negative (Negative); Urine Cocaine Negative (Negative); Urine MDMA Negative (Negative); Urine Methadone Negative (Negative); Urine Methamphetamines Negative (Negative); Urine Oxycodone Negative (Negative); Urine Phencyclidine Negative (Negative); Urine Tetrahydrocannabinol Positive (Negative); Urine Tricyclic Antidepressant Negative (Negative); Urine pH Normal (Normal)
[2023-07-28 01:09] VITALS: PULSE 91; O2SAT 94
[2023-07-28 01:10] VITALS: BP 115/59; PULSE 89; O2SAT 95
[2023-07-28 01:30] VITALS: BP 116/57; PULSE 84
[2023-07-28 02:00] VITALS: BP 103/50; PULSE 93; O2SAT 94
== END 2023-07-28 02:18 | disposition home or self-care (01) ==
PROVIDERS: Emergency Provider Emergency Medicine
DX: R10.13 Epigastric pain (principal)
CPT/HCPCS: 36415; 74177; 80053; 80305; 80320; 81001; 81025; 82550; 83690; 84484; 85025; 93005; 96374; 96375; 96376; 99284; J2270; J2405; Q9967

== ENCOUNTER 2023-11-26 17:13 | Inpatient (IN) | payer MEDICARE, MEDICAID, SELFPAY ==
[2023-11-26 17:22] VITALS: BP 140/60; PULSE 92; RESP 18; TEMP 36.3; O2SAT 98; BMI 35.2
[2023-11-26 17:52] LABS: Add Manual Diff / Slide Review NO; Basophils Absolute Auto 0 /uL (0-100); Basophils Percent Auto 0.5 % (0-2); Eosinophils Absolute Auto 100 /uL (0-450); Eosinophils Percent Auto 1.6 % (2-4); Hematocrit 35.4 % (36-46); Hemoglobin 11.8 g/dL (12.0-16.0); Lymphocytes Absolute Auto 2400 /uL (1100-4500); Lymphocytes Percent Auto 31.4 % (25-40); Mean Corpuscular HGB Conc 33.2 % (30-36); Mean Corpuscular Hemoglobin 30.7 PG (26-34); Mean Corpuscular Volume 92.4 fL (80-100); Monocytes Absolute Auto 600 /uL (0-900); Monocytes Percent Auto 7.1 % (3-14); Neutrophils Absolute Auto 4600 /uL (1500-7000); Neutrophils Percent Auto 59.4 % (50-75); Platelet Count 453 X10^3/uL (150-400); Red Blood Cell Count 3.84 X10^6/uL (4.0-5.2); Red Cell Distribution Width 13.5 % (11.6-14.8); White Blood Cell Count 7.8 X10^3/uL (4.5-11.0)
--- NOTE | 2023-11-26 17:55 | DI.US.S_ITS ---
PROCEDURE: US ABDOMEN LIMITED INDICATIONS: RUQ PAIN TECHNIQUE: Real-time scanning was performed of the abdominal and retroperitoneal organs, with image documentation. COMPARISON: None. FINDINGS: Liver: Liver is normal in size and homogeneous in echotexture. Gallbladder: Multiple gallstones is are present in the gallbladder. The gallbladder wall is thickened measuring 5 mm. There is pain on examination with the ultrasound probe. Biliary ducts: There is intrahepatic and extrahepatic biliary ductal dilatation. Common bile duct measures 11 mm. Common hepatic duct measures 10 mm. Pancreas: Not seen secondary to overlying bowel gas. Miscellaneous: No free abdominal fluid. IMPRESSION: 1. Findings are consistent with acute cholecystitis. 2. Dilated biliary tree use raises the possibility of choledochal stone. Comment: Preliminary findings were reported by the pad cutter to the referring provider at the time of study completion. Dictated by: Jason Tamayo M.D. on 11/26/2023 at 18:45 Approved by: Jason Tamayo M.D. on 11/26/2023 at 18:51
[2023-11-26 17:56] LABS: Alanine Aminotransferase 20 IU/L (<35); Albumin 3.9 g/dL (3.5-5.0); Alkaline Phosphatase 121 U/L (38-126); Aspartate Aminotransferase 42 IU/L (14-36); BUN Creatinine Ratio 14.5 (6-22); Bilirubin Total 0.4 mg/dL (0.2-1.3); Blood Urea Nitrogen 9 mg/dL (7-17); Calcium 8.8 mg/dL (8.4-10.2); Carbon Dioxide 30 mmol/L (22-32); Chloride 105 mmol/L (98-107); Estimated Glomerular Filt Rate > 60 mL/min (>60); Globulin 3.9 g/dL (1.7-4.1); Glucose 113 mg/dL (70-100); HEMOLYSIS < 15 (0-50); Lipase 34 U/L (23-300); Potassium 3.2 mmol/L (3.4-5.1); Sodium 142 mmol/L (137-145); Total Protein 7.8 g/dL (6.3-8.2)
--- NOTE | 2023-11-26 18:03 | PC.NURSE ---
pt declined any nausea medicine at this time.
[2023-11-26 18:08] VITALS: PULSE 89; RESP 18; O2SAT 97
--- NOTE | 2023-11-26 18:12 | ED.ABDPAIN ---
HPI - Abdominal Pain General Chief Complaint: Abdominal Pain Stated Complaint: abd pain Time Seen by Provider: 11/26/23 17:53 Source: patient Mode of arrival: Ambulatory History of Present Illness HPI narrative: 47yoF with PMH of lupus, not on any medications, tobacco abuse presents by private vehicle from home for 1 hour of sharp, nonradiating midepigastric abdominal pain with nausea. Pain began suddenly 1 hour prior to arrival. Not associated with food intake. I saw patient for similar pain several months ago, at that time workup was unremarkable, patient had mild biliary ductal dilation compared to a previous scan in 2017 and she was told to follow up with her primary and specialists. Related Data Home Medications Medication Instructions Recorded Confirmed No Known Home Medications 11/26/23 11/26/23 Allergies Allergy/AdvReac Type Severity Reaction Status Date / Time cyclobenzaprine Allergy Unknown Verified 06/26/23 10:37 [From FLEXERIL] methocarbamol [METHOCARBAMOL] Allergy Unknown Verified 06/26/23 10:37 tramadol [TRAMADOL] Allergy Unknown Verified 06/26/23 10:37 acetaminophen Allergy Verified 06/26/23 10:37 [From Darvocet-N] propoxyphene Allergy Verified 06/26/23 10:37 [From Darvocet-N] Review of Systems Review of Systems Narrative: See HPI Patient History Medical History Rheumatoid arthritis Substance abuse Surgical History No pertinent past surgical history Social History household members: family Smoking Status: Current every day smoker alcohol intake: never substance use type: painkillers Smoking Status: Current every day smoker alcohol intake frequency: 0-2 drinks per day Substance Use Type: marijuana, painkillers and club/set and exhibit designer drugs Exam Initial Vital Signs Initial Vital Signs: Vital Signs Temperature 97.3 F L 11/26/23 17:22 Pulse Rate 92 H 11/26/23 17:22 Respiratory Rate 18 11/26/23 17:22 Blood Pressure 140/60 11/26/23 17:22 Pulse Oximetry 98 11/26/23 17:22 Oxygen Delivery Method Room Air 11/26/23 17:22 Const: Awake, alert, in pain, uncomfortable Cardiac: regular rate, regular rhythm RESP: unlabored, clear bilaterally, no wheezing GI: Soft, midepigastric and right upper quadrant tenderness to deep palpation Skin: Warm, Dry, intact, no rashes Neuro: AO x3, CN II-XII grossly intact, moves all extremities Course Orders Ordered: Piperacillin Sod/Tazobactam (Sod 3.375 gm/ Sodium Chloride) 100 mls @ 25 mls/hr IV Q8H NITA Last Admin: 11/27/23 00:25 Dose: 25 mls/hr Documented By: AT Sodium Chloride (Normal Saline 0.9%) 1,000 mls @ 125 mls/hr IV CONT NITA Last Admin: 11/26/23 21:45 Dose: 125 mls/hr Documented By: AT Ibuprofen (Ibuprofen 600 Mg Tablet) 600 mg PO Q6H PRN PRN Reason: Fever/Mild Pain (1-3) Naloxone HCl (Naloxone 0.4 Mg/Ml Vial) 0.2 mg IV Q2MIN PRN PRN Reason: Opiate Reversal Ondansetron HCl (Ondansetron 4 Mg Odt) 4 mg PO NOW PRN PRN Reason: Nausea And Vomiting Ondansetron HCl (Ondansetron 4 Mg/2 Ml Inj) 4 mg IV NOW PRN PRN Reason: Nausea And Vomiting Oxycodone HCl (Oxycodone Ir 5 Mg Tablet) 5 mg PO Q4HR PRN PRN Reason: Pain, Moderate (4-6) Last Admin: 11/26/23 21:45 Dose: 5 mg Documented By: AT Discontinued Medications Sodium Chloride (Normal Saline 0.9%) 1,000 mls @ 1,000 mls/hr IV BOLUS ONE Stop: 11/26/23 19:12 Last Admin: 11/26/23 18:27 Dose: 1,000 mls/hr Documented By: DAVID Piperacillin Sod/Tazobactam (Sod 4.5 gm/ Sodium Chloride) 100 mls @ 200 mls/hr IV NOW ONE Stop: 11/26/23 19:23 Last Admin: 11/26/23 19:46 Dose: 200 mls/hr Documented By: Ketorolac Tromethamine (Ketorolac 30 Mg/Ml Vial) 15 mg IV NOW ONE Stop: 04/05/24 18:14 Last Admin: 11/26/23 18:28 Dose: 15 mg Documented By: DAVID Nicotine (Nicotine 21 Mg Patch) 21 mg TOP NOW ONE Stop: 11/26/23 19:25 Last Admin: 11/26/23 20:09 Dose: 21 mg Documented By: Vital Signs Vital signs: Vital Signs - 8 hr 11/26/23 17:22 11/26/23 18:08 11/26/23 18:30 Temperature 97.3 F L Pulse Rate 92 H 89 83 Respiratory Rate 18 18 18 Blood Pressure 140/60 Pulse Oximetry 98 97 95 Oxygen Delivery Method Room Air Room Air 11/26/23 18:30 11/26/23 19:00 11/26/23 19:00 Temperature Pulse Rate 81 Respiratory Rate 16 Blood Pressure 127/61 115/58 L Pulse Oximetry 93 Oxygen Delivery Method MDM - Abdominal Pain Differential Diagnosis Differential diagnosis: Likely abdominal pain, acute appendicitis and calculus of kidney Lab Data 11/26/23 17:30 11/26/23 17:30 Labs: Lab Results 11/26/23 Range/Units 17:30 WBC 7.8 (4.5-11.0) X10^3/uL RBC 3.84 L (4.0-5.2) X10^6/uL Hgb 11.8 L (12.0-16.0) g/dL Hct 35.4 L (36-46) % MCV 92.4 (80-100) fL MCH 30.7 (26-34) PG MCHC 33.2 (30-36) % RDW 13.5 (11.6-14.8) % Plt Count 453 H (150-400) X10^3/uL Neut % (Auto) 59.4 (50-75) % Lymph % (Auto) 31.4 (25-40) % [place] % (Auto) 7.1 (3-14) % Eos % (Auto) 1.6 L (2-4) % Baso % (Auto) 0.5 (0-2) % Neut # (Auto) 4600 (3439-1544) /uL Lymph # (Auto) 2400 (0026-0279) /uL [place] # (Auto) 600 (0-900) /uL Eos # (Auto) 100 (0-450) /uL Baso # (Auto) 0 (0-100) /uL Sodium 142 (137-145) mmol/L Potassium 3.2 L (3.4-5.1) mmol/L Chloride 105 (98-107) mmol/L Carbon Dioxide 30 (22-32) mmol/L BUN 9 (7-17) mg/dL Creatinine 0.62 (0.52-1.04) mg/dL Estimated GFR > 60 (>60) mL/min BUN/Creatinine Ratio 14.5 (6-22) Glucose 113 H (70-100) mg/dL Calcium 8.8 (8.4-10.2) mg/dL Total Bilirubin 0.4 (0.2-1.3) mg/dL AST 42 H (14-36) IU/L ALT 20 (<35) IU/L Alkaline Phosphatase 121 (38-126) U/L Total Protein 7.8 (6.3-8.2) g/dL Albumin 3.9 (3.5-5.0) g/dL Globulin 3.9 (1.7-4.1) g/dL Albumin/Globulin Ratio 1.0 (1.0-2.8) Lipase 34 (23-300) U/L Imaging Data US - abdomen: Radiologist's Impression: PROCEDURE: US ABDOMEN LIMITED INDICATIONS: RUQ PAIN TECHNIQUE: Real-time scanning was performed of the abdominal and retroperitoneal organs, with image documentation. COMPARISON: None. FINDINGS: Liver: Liver is normal in size and homogeneous in echotexture. Gallbladder: Multiple gallstones is are present in the gallbladder. The gallbladder wall is thickened measuring 5 mm. There is pain on examination with the ultrasound probe. Biliary ducts: There is intrahepatic and extrahepatic biliary ductal dilatation. Common bile duct measures 11 mm. Common hepatic duct measures 10 mm. Pancreas: Not seen secondary to overlying bowel gas. Miscellaneous: No free abdominal fluid. IMPRESSION: 1. Findings are consistent with acute cholecystitis. 2. Dilated biliary tree use raises the possibility of choledochal stone. Comment: Preliminary findings were reported by the mobile phone salesperson to the referring provider at the time of study completion. Dictated by: Jason Tamayo M.D. on 11/26/2023 at 18:45 Approved by: Jason Tamayo M.D. on 11/26/2023 at 18:51 MDM Narrative Medical decision making narrative: Uncomfortable but nontoxic patient presenting for recurrence of midepigastric abdominal pain, history of biliary dilation on previous exams, however normal liver enzymes. Abdomen is soft but she was tender in the midepigastric and right upper quadrants. Laboratory work significant for WBC count 7.8, hemoglobin 11.8, platelets 453, sodium 142, potassium 3.2, creatinine 0.62, T bili 0.4, AST 42, ALT 20, alk phos 121. Ultrasound of the right upper quadrant shows acute cholecystitis. There is biliary ductal dilation, as seen on previous scans. Discussed case with Dr. Beckett of General surgery, who stated that with normal liver enzymes patient did not have to be transferred and could be managed at [facility]. Requested Zosyn administration and we will admit for anticipated cholecystectomy tomorrow. Patient informed of lab and imaging results as well as General surgery recommendations. Patient requested a nicotine patch. Discharge Plan Departure Patient Disposition: Home Clinical Impression: Acute cholecystitis, Mild tobacco abuse
[2023-11-26] MEDS: SODIUM CHLORIDE 0.9% 1,000 ML 1000 ML IV (18:27)
[2023-11-26] MEDS: KETOROLAC 30 MG/ML VIAL 15 MG IV (18:28)
[2023-11-26 18:30] VITALS: BP 127/61; PULSE 83; RESP 18; O2SAT 95
[2023-11-26 19:00] VITALS: BP 115/58; PULSE 81; RESP 16; O2SAT 93
[2023-11-26] MEDS: PIPERACILLIN/TAZO 4.5 GM in SODIUM CHLORIDE 0.9% 100 ML IV (19:46)
[2023-11-26] MEDS: NICOTINE 21 MG PATCH TOP (20:09)
[2023-11-26 20:18] VITALS: BMI 35.5
[2023-11-26 20:20] VITALS: BP 121/58; PULSE 71; RESP 19; TEMP 36; O2SAT 96
[2023-11-26 20:33] VITALS: BMI 35.5
[2023-11-26] MEDS: SODIUM CHLORIDE 0.9% 1,000 ML 125 ML IV (21:45)
[2023-11-26] MEDS: OXYCODONE IR 5 MG TABLET PO (21:45)
[2023-11-26 22:00] VITALS: O2SAT 96
[2023-11-26 23:34] LABS: Appearance Urine UA CLEAR; Bilirubin Urine UA NEGATIVE (NEGATIVE); Color Urine UA YELLOW; Glucose Urine UA NEGATIVE (Negative); Ketones Urine UA NEGATIVE (NEGATIVE); Leukocyte Esterase Urine UA NEGATIVE (NEGATIVE); Nitrite Urine UA NEGATIVE (Negative); Occult Blood Urine UA 1+ (Negative); Protein Urine UA NEGATIVE (Negative); Urobilinogen Urine UA 0.2 E.U./dL (0.2)
[2023-11-26 23:47] LABS: Bacteria Urine None Seen; Culture Indicated Urine Cult Not Indicated; RBC Urine 0-1/HPF (0-5/HPF); Squamous Epithelial Cell Urine 0-1 /HPF (0-5/HPF); Urine Volume 10mL (spun); WBC Urine None Seen (0-5/HPF)
[2023-11-27] VITALS (25 sets, daily range): BP systolic 99–161; BP diastolic 50–69; PULSE 56–89; RESP 12–20; TEMP 35.9–38; O2SAT 87–99
--- NOTE | 2023-11-27 | PATH_ITS ---
[facility] Accession Number: [id number] No. of containers..01 Tissue . 01 Material submitted: . gallbladder - PARTIAL GALLBLADDER . 01 Diagnosis: PARTIAL GALLBLADDER: Acute and chronic cholecystitis, with cholelithiasis. No dysplasia or malignancy identified. [facility] 12/02/2023 111 Local . 01 Electronically signed: . Chung Park MD, Pathologist NPI- [id number] . 01 Gross description: . Received in formalin with two identifiers and gallbladder, are three fragments of presumed gallbladder aggregating to 5.1 x 4.0 x 0.6 cm. The serosa is violaceous and smooth with no distinct cystic duct margin identified. The cauterized edges of the three fragments are differentially inked. A yellow roughened calculus is found within the container measuring 0.6 cm in greatest dimension. The mucosa is del real to brown and velvety with no polyps or lesions identified. The hicks average 0.3 cm thick, and ambulatory service representative sections are submitted in cassette A1. ([id number]) /MRV 12/02/20231118 Local . 01 Pathologist provided ICD-10: K80.12 . 01 CPT . 174953 Specimen Comment: A courtesy copy of this report has been sent to [phone] Performed at: 01 [facility] [address] [place] [address], [place], [place] [id number] MD Chung Park MD Phone: [phone]
[2023-11-27] MEDS: PIPERACILLIN/TAZO 3.375 GM in SODIUM CHLORIDE 0.9% 100 ML IV ×4 (00:25→23:52)
[2023-11-27] MEDS: IBUPROFEN 600 MG TABLET PO (08:00)
[2023-11-27] MEDS: OXYCODONE IR 5 MG TABLET PO ×2 (08:00→11:23)
--- NOTE | 2023-11-27 08:46 | PM.HP.1 ---
History of Present Illness History of Present Illness Date Patient Seen: 11/27/23 Time Patient Seen: 08:46 Chief complaint: abd pain Narrative: 47-year-old woman with a history of lupus not on medication presents to [facility] Emergency Department with the acute onset of abdominal pain. Associated nausea no fever. She has had previous similar postprandial pain. Right upper quadrant ultrasound demonstrates acute cholecystitis, with multiple gallstones and wall thickening. On admission afebrile, total bilirubin 0.4 LFTs unremarkable. Previous abdominal surgery includes laparoscopic tubal ligation. [facility] Medical History Rheumatoid arthritis Substance abuse Surgical History No pertinent past surgical history Social History household members: family Smoking Status: Current every day smoker alcohol intake: never substance use type: painkillers Meds Home Medications and Allergies Home Medications Medication Instructions Recorded Confirmed Type No Known Home Medications 11/26/23 11/26/23 History Allergies Allergy/AdvReac Type Severity Reaction Status Date / Time cyclobenzaprine Allergy Unknown Verified 06/26/23 10:37 [From FLEXERIL] methocarbamol [METHOCARBAMOL] Allergy Unknown Verified 06/26/23 10:37 tramadol [TRAMADOL] Allergy Unknown Verified 06/26/23 10:37 propoxyphene Allergy Verified 06/26/23 10:37 [From Darvocet-N] Exam Vital Signs (past 8 hours): - 11/27/23 02:00 11/27/23 04:00 11/27/23 06:00 Temperature 96.7 F L Pulse Rate 80 Respiratory Rate 16 Blood Pressure 103/51 L Pulse Oximetry 96 99 99 Oxygen Delivery Method Room Air Room Air Oxygen Flow Rate 0 11/27/23 08:00 Temperature 98.1 F Pulse Rate 68 Respiratory Rate 17 Blood Pressure 99/60 Pulse Oximetry 93 Oxygen Delivery Method Oxygen Flow Rate Oxygen Delivery Method Room Air Oxygen Flow Rate 0 Narrative Exam Narrative: GENERAL: A well nourished, well developed adult woman, resting comfortably, in no acute distress. HEENT: Normocephalic, atraumatic. No scleral icterus CHEST: Rising symmetrically. No audible wheezes CARDIOVASCULAR: Warm and well perfused. Regular rate ABDOMEN: tender RUQ EXTREMITIES: Normal tone and without edema. NEUROLOGIC: Moving all extremities spontaneously. No gross motor deficits. Objective Labs 11/26/23 17:30 11/26/23 17:30 Labs: Laboratory Results - last 24 hr 11/26/23 11/26/23 17:30 23:12 WBC 7.8 RBC 3.84 L Hgb 11.8 L Hct 35.4 L MCV 92.4 MCH 30.7 MCHC 33.2 RDW 13.5 Plt Count 453 H Neut % (Auto) 59.4 Lymph % (Auto) 31.4 [place] % (Auto) 7.1 Eos % (Auto) 1.6 L Baso % (Auto) 0.5 Neut # (Auto) 4600 Lymph # (Auto) 2400 [place] # (Auto) 600 Eos # (Auto) 100 Baso # (Auto) 0 Sodium 142 Potassium 3.2 L Chloride 105 Carbon Dioxide 30 BUN 9 Creatinine 0.62 Estimated GFR > 60 BUN/Creatinine Ratio 14.5 Glucose 113 H Calcium 8.8 Total Bilirubin 0.4 AST 42 H ALT 20 Alkaline Phosphatase 121 Total Protein 7.8 Albumin 3.9 Globulin 3.9 Albumin/Globulin Ratio 1.0 Lipase 34 Urine Color Yellow Urine Appearance Clear Urine pH 7.0 Ur Specific [place] 1.010 Urine Protein Negative Urine Glucose (UA) Negative Urine Ketones Negative Urine Occult Blood 1+ H Urine Nitrate Negative Urine Bilirubin Negative Urine Urobilinogen 0.2 Ur Leukocyte Esterase Negative Urine RBC 0-1/hpf Urine WBC None seen Ur Squamous Epith Cells 0-1 /hpf Urine Bacteria None seen Ur Culture Indicated? Cult not indicated Vol Urine Centrifuged 10ml (spun) Assessment & Plan Assessment and plan (1) Acute cholecystitis: Status: Acute Assessment & Plan narrative: 47-year-old woman with symptoms and radiographic findings consistent with acute cholecystitis. Recommended that we proceed with laparoscopic cholecystectomy. Overview of the operation was discussed. Operative risks including but not limited to infection, hemorrhage, damage to surrounding structures, were reviewed. Her questions have been answered. She provides her written and verbal consent to proceed. Quality VTE Deep Vein Thrombosis/Pulmonary Embolism Present on Admission: No
[2023-11-27] MEDS: LACTATED RINGERS 1,000 ML 42 ML IV ×2 (08:56→10:35)
--- NOTE | 2023-11-27 09:17 | SUR.HOLD ---
Upon arrival to Pre-op holding, patient states that she has some areas of open skin in her groin and abdomen. Upon inspection, patient noted to have a significant area of dry, scaly skin to umbilicus and to borh inner groins. Patient states that she was diagnosed with psoriasis back in May but that she was never prescribed any medication for condition. Patient also states that she has not been on any medications for her lupus since COV. Stressed the importance of following up with her PMD for both conditions. V/U. Dr Luo, surgeon, and Dr Lino, anesthesiology, both inspecting skin on arrival to pre-op holding. OR staff also aware.
--- NOTE | 2023-11-27 09:26 | SUR.OPER ---
Supine on padded OR bed, head on pillow, safety belt at thigh, left arm padded and tucked at side. Right arm secured on padded arm board <90 degrees abduction. Legs uncrossed. Padded footboard in place. Tape over blanket to secure lower legs.
[2023-11-27] MEDS: BUPIVACAINE 0.25% (PF) VIAL 30 ML INJ (09:30)
[2023-11-27] MEDS: ACETAMINOPHEN IV 1,000 MG/100 ML VIAL 400 MG IV (09:30)
--- NOTE | 2023-11-27 11:00 | P.OP_ITS ---
Operative Date/Time/Diagnoses Date of procedure: 11/27/23 Time of procedure: 11:00 Pre-op diagnosis: Acute cholecystitis Post-op diagnosis: other (Chronic cholecystitis) Procedure & Clinicians Procedure: Laparoscopic subtotal cholecystectomy Same procedure as scheduled: Yes Indications: 47-year-old woman presents with symptoms and radiographic findings consistent with acute cholecystitis. Following discussion she elects to proceed to the operating room for cholecystectomy. Surgeon: Drake Luo Click Yes if Unassisted: Yes Anesthesia Type: General Operative Notes Findings: Chronic cholecystitis. Inability to visualize the critical view of safety. Specimen(s): other (Partial gallbladder content) Estimated Blood Loss (mL): 200 Procedure in detail: Patient was brought to the operating room placed supine on the table. Bilateral lower extremity compression devices were applied. General anesthesia was induced she was intubated with an endotracheal tube. She received Zosyn prior to skin incision. She was prepped and draped in sterile fashion. Time-out was performed. A supraumbilical incision was made the fascia was grasped elevated sharply incised the abdomen was entered atraumatically. Pneumoperitoneum was established. Additional working ports of 5 mm were placed in the right upper quadrant and an 11 mm port high in the epigastrium. The gallbladder was tense and distended with a thickened wall. It was percutaneously drained to facilitate its manipulation. There was a large amount of omentum adherent to the gallbladder consistent with chronic cholecystitis. Using blunt dissection the omentum was dissected off of the gallbladder. Despite maximal reverse Trendelenburg we are unable to visualize the bottom 20% of the gallbladder. Given the inability to visualize the critical view of safety we proceeded with a laparoscopic subtotal cholecystectomy. Using the LigaSure the gallbladder was divided and then resected off of the gallbladder fossa towards the infundibulum. There were multiple stones within the gallbladder which were removed piecemeal. The bottom 20% of the gallbladder was left in place as no discernible structures could be identified. Portions of the gallbladder wall were removed from the abdomen using the Endo-Catch bag. Two 19 [place] Islander drains were placed into the abdomen through the right upper quadrant incisions 1 over the dome of the liver and in the right pericolic gutter the other within the gallbladder fossa. The umbilical incision was closed with interrupted Vicryl suture skin closed with Monocryl followed by Dermabond. She tolerated the operation well. The estimated blood loss was 200 mL. She was transferred to recovery in stable condition. Complications: none Post-operative Condition: stable Disposition: Acute Care
[2023-11-27] MEDS: ONDANSETRON 4 MG/2 ML INJ IV ×2 (11:23→20:25)
[2023-11-27] MEDS: HYDROMORPHONE 0.5 MG INJ IV (12:17)
--- NOTE | 2023-11-27 12:25 | PC.NURSE ---
Addendum entered by Shawna Yee R.N. 11/28/23 11:26: After surgery yesterday and this morning, RN counseled and educated pt on deep breathing and coughing and the importance of expanding the lungs. RN taught pt to use pillow to splint when taking deep breaths and moving. RN observed pt breathing shallowly and not maintaining 02 Sats>90, so RN contacted provider regarding pt oxygenation and breathing. 2L NC applied and RT consulted. Addendum entered by Shawna Yee R.N. 11/27/23 19:02: Contacted the provider at 1330 regarding pt's pain. Orders at that time for PRN pain meds were not relieving pt's pain and lowest pain level achieved was 7/10. Orders were modified. Original Note: removed 25ml sanguineous blood from bulb suction #1
[2023-11-27] MEDS: SODIUM CHLORIDE 0.9% 1,000 ML 125 ML IV ×2 (13:49→21:38)
[2023-11-27] MEDS: ACETAMINOPHEN 325 MG TABLET 650 MG PO ×2 (13:51→23:52)
[2023-11-27] MEDS: OXYCODONE IR 10 MG TABLET PO ×2 (13:51→23:51)
--- NOTE | 2023-11-27 15:08 | CM.DANOTE ---
Initial DCP Assessment Visit Note Reviewed EMR and team rounds for pt's medical status and updates. [employer] was not able to meet with pt f/f today as she was sleeping all day. Pt lives independently at baseline in her own home in [place] with family. Family will plan to transport her home once medically cleared for d/c. Payor: Medicare Attending: Dr. Luo Pt is a 47 year-old F who presented to the ED with sharp mid-epigastric pain and nausea/vomiting. ED ultrasound of the abd. showed acute cholecystitis. Surgery was consulted, plan was for pt to be placed in OPB, NPO, and started on IV fluids/ABO's with a plan for chlecystectomy, which was completed today. She's been having post-op complications of pain, has been sleeping most of the day. Family are at bedside. Likely she will d/c home on Monday 11/27. DCP will continue to follow for any evolving needs, however at this time no needs are anticipated for home d/c. Discharge Planning/Care Management CM Discharge Assessment Start: 11/27/23 14:47 Freq: Status: Active Protocol: Document 11/27/23 14:47 DPL (Rec: 11/27/23 15:08 DPL [id number]) Discharge Planning Assessment Assigned Care Information Associate GOMEZ Simms Advance Directives? No History Provided By Family Member,Medical Record Expected Length of Stay 3 Has Patient been admitted in last 30 No days? Prior Living Arrangements House Household Members family Type of transporation used prior to Drives own vehicle admit Independent with ADL's Yes Is patient alert and oriented? Yes Caregiver for Another Yes: family Comment No anticipated d/c needs identified at this time. Barriers to Discharge No Discharge Plan Home Referrals Initiated None needed Whiteboard Updated in Patient Room with Yes name and ext. # of Care Information Associate Review Status In Process Please Provide Date Initial DC 11/27/23 Assessment Was Performed
[2023-11-27] MEDS: HYDROMORPHONE 1 MG INJ IV ×2 (16:46→20:26)
[2023-11-28] VITALS (12 sets, daily range): BP systolic 99–120; BP diastolic 53–68; PULSE 65–93; RESP 16–24; TEMP 36.2–38; O2SAT 87–95
[2023-11-28] MEDS: HYDROMORPHONE 1 MG INJ IV ×3 (00:57→18:29)
[2023-11-28 04:42] LABS: Add Manual Diff / Slide Review NO; Basophils Absolute Auto 0 /uL (0-100); Basophils Percent Auto 0.2 % (0-2); Eosinophils Absolute Auto 0 /uL (0-450); Eosinophils Percent Auto 0.2 % (2-4); Hemoglobin 10.2 g/dL (12.0-16.0); Lymphocytes Absolute Auto 1400 /uL (1100-4500); Lymphocytes Percent Auto 9.1 % (25-40); Mean Corpuscular HGB Conc 32.9 % (30-36); Mean Corpuscular Hemoglobin 30.6 PG (26-34); Monocytes Absolute Auto 1000 /uL (0-900); Monocytes Percent Auto 6.7 % (3-14); Neutrophils Absolute Auto 12700 /uL (1500-7000); Neutrophils Percent Auto 83.8 % (50-75); Platelet Count 385 X10^3/uL (150-400); Red Blood Cell Count 3.34 X10^6/uL (4.0-5.2); Red Cell Distribution Width 13.9 % (11.6-14.8); White Blood Cell Count 15.1 X10^3/uL (4.5-11.0)
[2023-11-28 05:02] LABS: Alanine Aminotransferase 28 IU/L (<35); Albumin Globulin Ratio 0.9 (1.0-2.8); Alkaline Phosphatase 110 U/L (38-126); Aspartate Aminotransferase 40 IU/L (14-36); BUN Creatinine Ratio 10.8 (6-22); Bilirubin Total 0.5 mg/dL (0.2-1.3); Blood Urea Nitrogen 7 mg/dL (7-17); Calcium 8.1 mg/dL (8.4-10.2); Carbon Dioxide 27 mmol/L (22-32); Chloride 110 mmol/L (98-107); Estimated Glomerular Filt Rate > 60 mL/min (>60); Globulin 3.3 g/dL (1.7-4.1); Glucose 115 mg/dL (70-100); HEMOLYSIS < 15 (0-50); Potassium 3.9 mmol/L (3.4-5.1); Sodium 139 mmol/L (137-145); Total Protein 6.3 g/dL (6.3-8.2)
[2023-11-28] MEDS: OXYCODONE IR 10 MG TABLET PO ×4 (05:12→22:17)
[2023-11-28] MEDS: SODIUM CHLORIDE 0.9% 1,000 ML 125 ML IV ×3 (05:25→22:36)
[2023-11-28] MEDS: PIPERACILLIN/TAZO 3.375 GM in SODIUM CHLORIDE 0.9% 100 ML IV ×2 (07:58→16:46)
--- NOTE | 2023-11-28 10:22 | PM.PNPO.1 ---
Subjective Subjective Date Patient Seen: 11/28/23 Time Patient Seen: 10:22 Interval history: Postoperative day 1 status post laparoscopic subtotal cholecystectomy for chronic cholecystitis. -nausea -moderate pain, controllable Exam Vital Signs (past 8 hours): - 11/28/23 04:00 11/28/23 07:00 11/28/23 08:00 Temperature 99.4 F 97.8 F Pulse Rate 93 H 92 H Respiratory Rate 19 16 Blood Pressure 120/68 118/62 Pulse Oximetry 94 93 Oxygen Delivery Method Room Air Oxygen Flow Rate 2 0 11/28/23 08:00 Temperature Pulse Rate Respiratory Rate Blood Pressure Pulse Oximetry 93 Oxygen Delivery Method Room Air Oxygen Flow Rate 0 Fraction of Inspired Oxygen 21 SaO2/FiO2 Ratio 447 Oxygen Delivery Method Room Air Oxygen Flow Rate 0 Narrative Exam Narrative: General adult woman alert oriented no acute distress Abdomen soft appropriately tender to palpation. Intra-abdominal drains with bile staining. Objective Labs 11/28/23 04:14 11/28/23 04:14 Labs: Laboratory Results - last 24 hr 11/28/23 04:14 WBC 15.1 H D RBC 3.34 L Hgb 10.2 L Hct 31.0 L MCV 93.0 MCH 30.6 MCHC 32.9 RDW 13.9 Plt Count 385 Neut % (Auto) 83.8 H D Lymph % (Auto) 9.1 L D [place] % (Auto) 6.7 Eos % (Auto) 0.2 L Baso % (Auto) 0.2 Neut # (Auto) 66280 H Lymph # (Auto) 1400 [place] # (Auto) 1000 H Eos # (Auto) 0 Baso # (Auto) 0 Sodium 139 Potassium 3.9 Chloride 110 H Carbon Dioxide 27 BUN 7 Creatinine 0.65 Estimated GFR > 60 BUN/Creatinine Ratio 10.8 Glucose 115 H Calcium 8.1 L Total Bilirubin 0.5 AST 40 H ALT 28 Alkaline Phosphatase 110 Total Protein 6.3 Albumin 3.0 L Globulin 3.3 Albumin/Globulin Ratio 0.9 L PFSH Medical History Rheumatoid arthritis Substance abuse Surgical History No pertinent past surgical history Social History household members: family Smoking Status: Current every day smoker alcohol intake: never substance use type: painkillers Assessment & Plan Post-op Postoperative Procedures: Procedures Operation Date: 11/27/23 09:00 Actual Procedure Side Surgeon p Laparoscopic SUBTOTAL Cholecystectomy Drake Luo MD Postoperative status narrative: 47-year-old woman postoperative day 1 status post laparoscopic subtotal cholecystectomy for chronic cholecystitis. -continue intra-abdominal drains currently with bile staining until clear -continue Zosyn -anticipate discharge within the next 1-2 days likely with at least 1 drain present -drain teaching, possible need for home health -SCDs and Lovenox Quality VTE Deep Vein Thrombosis/Pulmonary Embolism Present on Admission: No
[2023-11-28] MEDS: ACETAMINOPHEN 325 MG TABLET 650 MG PO ×2 (11:05→17:17)
[2023-11-28] MEDS: ALBUTEROL 2.5 MG/3 ML NEB (ADULT) INH (11:23)
[2023-11-29] VITALS (7 sets, daily range): BP systolic 97–118; BP diastolic 49–57; PULSE 84–98; RESP 13–18; TEMP 36.5–37.2; O2SAT 89–96
[2023-11-29] MEDS: PIPERACILLIN/TAZO 3.375 GM in SODIUM CHLORIDE 0.9% 100 ML IV ×3 (00:04→15:44)
[2023-11-29] MEDS: ACETAMINOPHEN 325 MG TABLET 650 MG PO ×2 (02:17→20:29)
[2023-11-29] MEDS: OXYCODONE IR 10 MG TABLET PO ×5 (02:17→21:57)
[2023-11-29 04:40] LABS: Add Manual Diff / Slide Review NO; Basophils Absolute Auto 0 /uL (0-100); Basophils Percent Auto 0.3 % (0-2); Eosinophils Absolute Auto 100 /uL (0-450); Eosinophils Percent Auto 1.1 % (2-4); Hematocrit 27.5 % (36-46); Hemoglobin 9.1 g/dL (12.0-16.0); Lymphocytes Absolute Auto 1700 /uL (1100-4500); Lymphocytes Percent Auto 13.3 % (25-40); Mean Corpuscular HGB Conc 33.1 % (30-36); Mean Corpuscular Hemoglobin 30.7 PG (26-34); Mean Corpuscular Volume 92.6 fL (80-100); Monocytes Absolute Auto 900 /uL (0-900); Monocytes Percent Auto 7.1 % (3-14); Neutrophils Absolute Auto 10200 /uL (1500-7000); Neutrophils Percent Auto 78.2 % (50-75); Platelet Count 348 X10^3/uL (150-400); Red Blood Cell Count 2.97 X10^6/uL (4.0-5.2); Red Cell Distribution Width 14.2 % (11.6-14.8); White Blood Cell Count 13.1 X10^3/uL (4.5-11.0)
[2023-11-29 04:53] LABS: Alanine Aminotransferase 24 IU/L (<35); Albumin 2.7 g/dL (3.5-5.0); Albumin Globulin Ratio 0.8 (1.0-2.8); Alkaline Phosphatase 92 U/L (38-126); Aspartate Aminotransferase 36 IU/L (14-36); BUN Creatinine Ratio 9.4 (6-22); Bilirubin Total 0.5 mg/dL (0.2-1.3); Blood Urea Nitrogen 5 mg/dL (7-17); Calcium 7.8 mg/dL (8.4-10.2); Carbon Dioxide 26 mmol/L (22-32); Chloride 113 mmol/L (98-107); Estimated Glomerular Filt Rate > 60 mL/min (>60); Globulin 3.3 g/dL (1.7-4.1); Glucose 98 mg/dL (70-100); HEMOLYSIS < 15 (0-50); Potassium 3.6 mmol/L (3.4-5.1); Sodium 138 mmol/L (137-145)
[2023-11-29] MEDS: SODIUM CHLORIDE 0.9% 1,000 ML 125 ML IV (06:46)
[2023-11-29] MEDS: ENOXAPARIN 40 MG/0.4 ML SYRINGE SUBCUT (08:13)
--- NOTE | 2023-11-29 12:37 | P.PN_ITS ---
Subjective Subjective Date Patient Seen: 11/29/23 Time Patient Seen: 12:37 Interval history: Feeling better today Tolerating a diet Exam Vital Signs (past 8 hours): - 11/29/23 04:50 11/29/23 07:16 11/29/23 08:00 Temperature 98.6 F 99.0 F Pulse Rate 86 93 H Respiratory Rate 18 13 Blood Pressure 113/54 L 115/54 L Pulse Oximetry 92 93 Oxygen Delivery Method Nasal Cannula Oxygen Flow Rate 2 2 Fraction of Inspired Oxygen 28 Fraction of Inspired Oxygen 28 SaO2/FiO2 Ratio 447 Oxygen Delivery Method Nasal Cannula Oxygen Flow Rate 2 Narrative Exam Narrative: Abdomen is soft Drains are both serosanguineous Objective Labs 11/29/23 04:19 11/29/23 04:19 Labs: Laboratory Results - last 24 hr 11/29/23 04:19 WBC 13.1 H RBC 2.97 L Hgb 9.1 L Hct 27.5 L MCV 92.6 MCH 30.7 MCHC 33.1 RDW 14.2 Plt Count 348 Neut % (Auto) 78.2 H Lymph % (Auto) 13.3 L [place] % (Auto) 7.1 Eos % (Auto) 1.1 L Baso % (Auto) 0.3 Neut # (Auto) 24749 H Lymph # (Auto) 1700 [place] # (Auto) 900 Eos # (Auto) 100 Baso # (Auto) 0 Sodium 138 Potassium 3.6 Chloride 113 H Carbon Dioxide 26 BUN 5 L Creatinine 0.53 Estimated GFR > 60 BUN/Creatinine Ratio 9.4 Glucose 98 Calcium 7.8 L Total Bilirubin 0.5 AST 36 ALT 24 Alkaline Phosphatase 92 Total Protein 6.0 L Albumin 2.7 L Globulin 3.3 Albumin/Globulin Ratio 0.8 L PFSH Medical History Rheumatoid arthritis Substance abuse Surgical History No pertinent past surgical history Social History household members: family Smoking Status: Current every day smoker alcohol intake: never substance use type: painkillers Assessment & Plan Assessment and plan (1) Postoperative examination: Status: Acute Plan Continue drains Probably home tomorrow Quality VTE Deep Vein Thrombosis/Pulmonary Embolism Present on Admission: No
[2023-11-29] MEDS: SODIUM CHLORIDE 0.9% FLUSH 10 ML IV (20:30)
[2023-11-30] MEDS: PIPERACILLIN/TAZO 3.375 GM in SODIUM CHLORIDE 0.9% 100 ML IV ×2 (00:15→09:24)
[2023-11-30 00:23] VITALS: BP 90/52; PULSE 82; RESP 16; TEMP 37.3; O2SAT 93
[2023-11-30 01:00] VITALS: O2SAT 93
[2023-11-30] MEDS: OXYCODONE IR 5 MG TABLET PO ×2 (03:26→10:11)
[2023-11-30 03:28] VITALS: BP 99/65; PULSE 86; RESP 22; TEMP 37; O2SAT 93
[2023-11-30 04:50] LABS: Add Manual Diff / Slide Review NO; Basophils Absolute Auto 0 /uL (0-100); Basophils Percent Auto 0.3 % (0-2); Eosinophils Absolute Auto 200 /uL (0-450); Eosinophils Percent Auto 1.8 % (2-4); Hematocrit 27.1 % (36-46); Lymphocytes Absolute Auto 2000 /uL (1100-4500); Lymphocytes Percent Auto 20.5 % (25-40); Mean Corpuscular HGB Conc 33.2 % (30-36); Mean Corpuscular Hemoglobin 30.8 PG (26-34); Mean Corpuscular Volume 92.8 fL (80-100); Monocytes Absolute Auto 800 /uL (0-900); Monocytes Percent Auto 7.7 % (3-14); Neutrophils Absolute Auto 6800 /uL (1500-7000); Neutrophils Percent Auto 69.7 % (50-75); Platelet Count 344 X10^3/uL (150-400); Red Blood Cell Count 2.92 X10^6/uL (4.0-5.2); Red Cell Distribution Width 13.8 % (11.6-14.8); White Blood Cell Count 9.8 X10^3/uL (4.5-11.0)
[2023-11-30 05:00] VITALS: O2SAT 93
[2023-11-30 05:31] LABS: Alanine Aminotransferase 24 IU/L (<35); Albumin 2.7 g/dL (3.5-5.0); Albumin Globulin Ratio 0.8 (1.0-2.8); Alkaline Phosphatase 90 U/L (38-126); Aspartate Aminotransferase 32 IU/L (14-36); BUN Creatinine Ratio 8.3 (6-22); Bilirubin Total 0.4 mg/dL (0.2-1.3); Blood Urea Nitrogen 5 mg/dL (7-17); Carbon Dioxide 24 mmol/L (22-32); Chloride 111 mmol/L (98-107); Estimated Glomerular Filt Rate > 60 mL/min (>60); Globulin 3.4 g/dL (1.7-4.1); Glucose 97 mg/dL (70-100); HEMOLYSIS < 15 (0-50); Potassium 3.4 mmol/L (3.4-5.1); Sodium 138 mmol/L (137-145); Total Protein 6.1 g/dL (6.3-8.2)
[2023-11-30] MEDS: DOCUSATE 100 MG CAPSULE PO (09:24)
[2023-11-30] MEDS: ENOXAPARIN 40 MG/0.4 ML SYRINGE SUBCUT (09:24)
[2023-11-30] MEDS: SODIUM CHLORIDE 0.9% FLUSH 10 ML IV (09:24)
--- NOTE | 2023-11-30 09:27 | CM.DPC ---
DCP Cont. Reviewed EMR and team rounds for status updates. Pt has been medically cleared for d/c, her will drive her home. [employer] asked pt if she has decided on whether or not she would like Home Health RN for continued OP recovery, however she declined at this time. No further d/c needs indicated for assistance.
[2023-11-30 09:30] VITALS: BP 99/41; PULSE 90; RESP 15; TEMP 37.1; O2SAT 93
--- NOTE | 2023-11-30 13:26 | PC.NURSE ---
Discharge Note Patient A&O, VSS, RA, no complaints of pain/discomfort. Discharge packet reviewed with patient, all questions/concerns addressed. Dressing changed/PIV discontinued. Patient able to dress self and pack all belongings. Patient taken down via wheelchair to POV.
--- NOTE | 2023-11-30 17:04 | P.DS_ITS ---
History of Present Illness History of Present Illness Chief complaint: abd pain Narrative: 47-year-old woman with a history of lupus not on medication presents to [facility] Emergency Department with the acute onset of abdominal pain. Associated nausea no fever. She has had previous similar postprandial pain. Right upper quadrant ultrasound demonstrates acute cholecystitis, with multiple gallstones and wall thickening. On admission afebrile, total bilirubin 0.4 LFTs unremarkable. Previous abdominal surgery includes laparoscopic tubal ligation. Discharge Providers Provider Date of admission: 11/28/23 10:17 Discharge Date: 11/30/23 Primary care physician: Doctor Ternton MD Discharge provider: Drake Luo MD Summary Hospital Course Discharge Diagnosis: Acute cholecystitis Hospital Course: She was taken to the operating room November 26 for cholecystectomy. She was found to have chronic cholecystitis critical view of safety could not be established and she therefore underwent a laparoscopic subtotal cholecystectomy with drain placement. She was maintained on IV antibiotic therapy postoperatively. She weighs discharge home on a course of oral levofloxacin with 1 drain within the gallbladder fossa present. She will follow up in general surgery clinic WednesdayDecember 02 for re-evaluation. If she continues to have bile within the drain then she will be referred for an outpatient ERCP. At discharge she is ambulatory, without leukocytosis pain is well controlled, and tolerant of regular diet. Exam Vital Signs (past 8 hours): - 11/30/23 09:30 Temperature 98.7 F Pulse Rate 90 Respiratory Rate 15 Blood Pressure 99/41 L Pulse Oximetry 93 Oxygen Flow Rate 0 Fraction of Inspired Oxygen 28 SaO2/FiO2 Ratio 447 Oxygen Delivery Method Nasal Cannula Oxygen Flow Rate 0 Narrative Exam Narrative: General adult woman alert oriented no acute distress Abdomen soft appropriately tender to palpation. Scant output in 1 drain. Slight bile tinge to the 2nd. Objective Labs 11/30/23 04:25 11/30/23 04:25 Labs: Laboratory Results - last 24 hr 11/30/23 04:25 WBC 9.8 RBC 2.92 L Hgb 9.0 L Hct 27.1 L MCV 92.8 MCH 30.8 MCHC 33.2 RDW 13.8 Plt Count 344 Neut % (Auto) 69.7 Lymph % (Auto) 20.5 L [place] % (Auto) 7.7 Eos % (Auto) 1.8 L Baso % (Auto) 0.3 Neut # (Auto) 6800 Lymph # (Auto) 2000 [place] # (Auto) 800 Eos # (Auto) 200 Baso # (Auto) 0 Sodium 138 Potassium 3.4 Chloride 111 H Carbon Dioxide 24 BUN 5 L Creatinine 0.60 Estimated GFR > 60 BUN/Creatinine Ratio 8.3 Glucose 97 Calcium 8.0 L Total Bilirubin 0.4 AST 32 ALT 24 Alkaline Phosphatase 90 Total Protein 6.1 L Albumin 2.7 L Globulin 3.4 Albumin/Globulin Ratio 0.8 L PFSH Medical History Rheumatoid arthritis Substance abuse Surgical History No pertinent past surgical history Social History household members: family Smoking Status: Current every day smoker alcohol intake: never substance use type: painkillers Discharge Plan Discharge Plan Patient Disposition: Home Provider Discharge Comment: -empty surgical drain as instructed. -follow up in general surgery clinic WednesdayDecember 02 -okay to shower with drain in place if covered -Do not submerge wounds in water until seen in follow-up. -No lifting >10 lbs x 4 weeks. -Walking only for exercise for 4 weeks. -No driving while taking narcotics. Discharge orders & Medications Prescriptions: New oxycodone 5 mg tablet 5 mg PO Q6H PRN (Reason: pain) Qty: 30 0RF levofloxacin 500 mg tablet 500 mg PO DAILY Qty: 7 0RF Follow up/Referrals: Drake Luo MD [Physician] - 12/03/23 9:30 am (12/02 @ 9:30 check in for Drain evaluation) Doctor Chowdhury MD [Primary Care Provider] - Diet/Activity/Treatments Diet: Diet as Tolerated Skin/Wound/Dressing Care Report to your healthcare provider any signs of infection, such as:: chills, fever, increased pain, unusual drainage and unusual redness Visit Report/Discharge Packet Instructions: DI for Laparoscopic Cholecystectomy Stand Alone Forms: Patient Portal/API, Stroke Signs & Symptoms Discharge Data Primary Care Provider: Doctor [place] Quality VTE Deep Vein Thrombosis/Pulmonary Embolism Present on Admission: No
== END 2023-11-30 13:05 | disposition home or self-care (01) | DRG 446 ==
LOC: ED 17:53 → AC 19:27
PROVIDERS: Emergency Medicine; Admitting Provider Surgery; Emergency Provider Emergency Medicine; Referring Provider Emergency Medicine; Visit Provider Surgery
PROC: 0FT44ZZ Resection of Gallbladder, Percutaneous Endoscopic Approach (ICD-10-PCS; CPT 47562; principal; 2023-11-27 09:00)
DX: K80.12 Calculus of gallbladder with acute and chronic cholecystitis without obstruction (principal)
CPT/HCPCS: 36415; 47562; 76705; 80053; 81003; 81015; 83690; 85025; 93005; 94640; 94667; 94760; 96374; 99222; 99284; 99285; G0378; J0136; J0330; J1100; J1170; J1650; J1885; J2250; J2405; J2543; J2704; J3010; J7613

== ENCOUNTER 2024-01-26 22:18 | Observation (INO) | payer MEDICARE, MEDICAID, SELFPAY ==
[2023-11-30 09:47] VITALS: BMI 35.5
[2024-01-26 22:30] VITALS: BP 111/55; PULSE 98; RESP 16; TEMP 36.9; O2SAT 99; BMI 34.0
--- NOTE | 2024-01-26 22:51 | ED_ITS ---
HPI - General Adult General Chief complaint: Abdominal Pain Stated complaint: ABD infection with pain Time Seen by Provider: 01/26/24 22:48 Source: patient Mode of arrival: Family Vehicle History of Present Illness HPI narrative: 48-year-old woman with a history of lupus underwent laparoscopic subtotal cholecystectomy on November 26 with drain placement and IV antibiotic therapy postoperatively. Discharged home with levofloxacin and 1 drain in the gallbladder fossa. With outpatient follow up she was continuing to have bile within the drain and was referred for outpatient ERCP. She was seen at [facility] on December 09 with ERCP and retrograde removal of calculus from pancreatic duct with stent placement in the biliary/pancreatic duct secondary to bile leak. Patient presents to the would not emergency room tonight with LUIS drain still in place 10 weeks layer. States that she was supposed to have it out but did not follow up because she was concerned that it would hurt. Over the last 48 hours she is having increasing abdominal pain. She noted that she had had less 5 cc of clear fluid in the drain daily but over the last 48 hours that is becoming serosanguineous and today is almost purulent. She is complaining she is having overall increased abdominal pain both in the right upper quadrant and left lower quadrants, general myalgias chills and is worried that the drain has become infected. She has had some nausea and vomiting no diarrhea. No chest pain, palpitations or headache Related Data Previous Rx's Medication Instructions Recorded levofloxacin 500 mg tablet 500 mg PO DAILY #7 tabs 11/30/23 oxycodone 5 mg tablet 5 mg PO Q6H PRN pain #30 tabs 12/02/23 Allergies Allergy/AdvReac Type Severity Reaction Status Date / Time cyclobenzaprine Allergy Unknown Verified 12/02/23 10:11 [From FLEXERIL] methocarbamol [METHOCARBAMOL] Allergy Unknown Verified 12/02/23 10:11 tramadol [TRAMADOL] Allergy Unknown Verified 12/02/23 10:11 propoxyphene Allergy Verified 12/02/23 10:11 [From Darvocet-N] Review of Systems Review of Systems Narrative: Pertinent positive and negative findings as per HPI Patient History Medical History Rheumatoid arthritis Substance abuse Surgical History No pertinent past surgical history Social History household members: family Smoking Status: Current every day smoker alcohol intake: never substance use type: painkillers Smoking Status: Current every day smoker alcohol intake frequency: 0-2 drinks per day 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 Able to give a complete and coherent history. HEENT: Moist mucous membranes, normal sclera with reactive pupils, Respiratory: Lungs are clear to auscultation, no wheezing no rales no rhonchi. Full and symmetrical air movement Cardiac: Regular rate and rhythm no murmurs no bruits Abdomen: Soft, mild tenderness in the right upper quadrant moderate tenderness in the left lower quadrant. No rebound or guarding. LUIS drain site in the mid right abdomen sutured in place minimal erythema no discharge around the drain site and no surrounding cellulitis from the site itself Skin: Warm and dry, no rashes Neurologic: Grossly neurologically intact with no obvious asymmetries or abnormalities Extremities: No trauma, well perfused Psych: Cooperative, appropriate insight and affect Course Orders Ordered: ED Orders 01/26/24 23:20 Complete Blood Count AUTO DIFF Stat Comprehensive Metabolic Panel Stat Lipase Stat Magnesium Stat 01/26/24 23:32 CT abdomen pelvis w con Stat 01/26/24 23:48 Wound Culture and Gram Stain Stat 01/27/24 00:07 Urinalysis and Microscopic Stat Hydromorphone HCl (Hydromorphone 0.5 Mg Inj) 0.5 mg IV Q15MIN PRN PRN Reason: Pain, Last Admin: 01/26/24 23:50 Dose: 0.5 mg Documented By: KD Discontinued Medications Sodium Chloride (Normal Saline 0.9%) 1,000 mls @ 1,000 mls/hr IV BOLUS ONE Stop: 01/27/24 00:30 Last Admin: 01/26/24 23:51 Dose: 1,000 mls/hr Documented By: MARIOLA Ondansetron HCl (Ondansetron 4 Mg/2 Ml Inj) 4 mg IV NOW ONE Stop: 01/26/24 23:32 Last Admin: 01/26/24 23:51 Dose: 4 mg Documented By: MAROILA Vital Signs Vital signs: Vital Signs - 8 hr 01/26/24 22:30 Temperature 98.5 F Pulse Rate 98 H Respiratory Rate 16 Blood Pressure 111/55 L Pulse Oximetry 99 Oxygen Delivery Method Room Air Medical Decision Making Lab Data 01/26/24 23:20 01/26/24 23:20 Labs: Lab Results 01/26/24 01/27/24 Range/Units 23:20 00:07 WBC 10.5 (4.5-11.0) X10^3/uL RBC 4.08 (4.0-5.2) X10^6/uL Hgb 12.0 (12.0-16.0) g/dL Hct 36.0 (36-46) % MCV 88.3 (80-100) fL MCH 29.3 (26-34) PG MCHC 33.2 (30-36) % RDW 15.2 H (11.6-14.8) % Plt Count 335 (150-400) X10^3/uL Neut % (Auto) 54.4 (50-75) % Lymph % (Auto) 32.6 (25-40) % [place] % (Auto) 7.8 (3-14) % Eos % (Auto) 4.5 H (2-4) % Baso % (Auto) 0.7 (0-2) % Neut # (Auto) 5700 (6617-4194) /uL Lymph # (Auto) 3400 (3695-3404) /uL [place] # (Auto) 800 (0-900) /uL Eos # (Auto) 500 H (0-450) /uL Baso # (Auto) 100 (0-100) /uL Sodium 136 L (137-145) mmol/L Potassium 3.4 (3.4-5.1) mmol/L Chloride 107 (98-107) mmol/L Carbon Dioxide 23 (22-32) mmol/L BUN 15 (7-17) mg/dL Creatinine 0.54 (0.52-1.04) mg/dL Estimated GFR > 60 (>60) mL/min BUN/Creatinine Ratio 27.8 H (6-22) Glucose 107 H (70-100) mg/dL Calcium 8.5 (8.4-10.2) mg/dL Magnesium 2.0 (1.6-2.3) mg/dL Total Bilirubin 0.5 (0.2-1.3) mg/dL AST 102 H (14-36) IU/L ALT 83 H (<35) IU/L Alkaline Phosphatase 111 (38-126) U/L Total Protein 7.3 (6.3-8.2) g/dL Albumin 4.0 (3.5-5.0) g/dL Globulin 3.3 (1.7-4.1) g/dL Albumin/Globulin Ratio 1.2 (1.0-2.8) Lipase 106 (23-300) U/L Urine Color Yellow Urine Appearance Clear Urine pH 6.5 (4.5-8.0) Ur Specific [place] <=1.005 (1.000-1.035) Urine Protein Negative (Negative) Urine Glucose (UA) Negative (Negative) g/dL Urine Ketones Negative (NEGATIVE) Urine Occult Blood 1+ H (Negative) Urine Nitrate Negative (Negative) Urine Bilirubin Negative (NEGATIVE) Urine Urobilinogen 0.2 (0.2) E.U./dL Ur Leukocyte Esterase Negative (NEGATIVE) Imaging Data CT scan - abdomen/pelvis: Radiologist's Impression: PROCEDURE: CT ABDOMEN PELVIS W CON INDICATIONS: abdominal pain TECHNIQUE: After the administration of intravenous contrast, axial sections acquired from the lung bases to the pubic symphysis. Coronal and sagittal reformats were performed. For radiation dose reduction, the following was used: automated exposure control, adjustment of mA and/or kV according to patient size. COMPARISON: [facility], CT, CT ABDOMEN PELVIS W CON, 07/28/2023, 0:49. FINDINGS: Image quality: Diagnostic. Lower Chest: No significant findings. ABDOMEN: Liver: No solid mass. Gallbladder: Status post interval cholecystectomy. A percutaneous drain is seen with tip in the right upper quadrant. There is a small amount of fluid in the gallbladder fossa adjacent to the pre tenia strain measuring 1.7 x 0.8 x 0.8 cm (29/2) Biliary ducts: Interval biliary stenting. There is expected pneumobilia. No intrahepatic or extrahepatic biliary ductal dilatation. Pancreas: No ductal dilation. Spleen: Size is within normal limits. Adrenal Glands: No adrenal nodules. Kidneys and Ureters: No hydronephrosis. No solid mass. No complex renal cystic lesion which requires follow up. Stomach and Bowel: Small bowel loops and stomach are unremarkable. Mild colonic stool. Peritoneum: No abnormal intraperitoneal fluid. No free air. Ventral Wall: No significant ventral hernia. Abdominal Nodes: No retroperitoneal or mesenteric adenopathy by size criteria. Vessels: Aorta and inferior vena cava are normal in size. PELVIS: Pelvic Organs: Unremarkable. Bladder: Bladder wall is mildly thickened, but is also under distended. Pelvic Nodes: No enlarged lymph nodes. Miscellaneous: No inguinal hernias are seen. Bones: No aggressive osseous abnormality. IMPRESSION: 1. Postsurgical changes from recent cholecystectomy. Small amount of focal fluid in the gallbladder fossa is likely the a cystic duct remanent although could possibly also represent a small postoperative seroma or a biloma. 2. Biliary stent is in appropriate position. No biliary duct dilatation. 3. Mild bladder wall thickening is likely related to underdistention versus cystitis. Approved by: Adolfo Pineda M.D. on 01/27/2024 at 1:28 MDM Narrative Medical decision making narrative: CC: Abdominal pain, concern for infection still has LUIS drain in after laparoscopic subtotal cholecystectomy and subsequent ERCP with stent placement, stent is also still in place Complicating co-morbidities: As above Data collected from: patient Medical records reviewed: Surgical notes with discharge are reviewed. ERCP notes from [facility] with stent placement and stone retrieval are reviewed Differential considered: Complication from prolonged drain placement, complications with stent, diverticulitis Exam documented above, pertinent findings include: Patient appears to feel generally unwell but is not acutely toxic. Drain has brownish purulent material approximately 8 cc Lab Test results independently reviewed as above. Pertinent findings: CBC is reassuring with white blood cell count at 10.5 without left shift. Resolved postoperative anemia Chemistries are relatively reassuring. Creatinine is appropriate. AST is elevated at 102, ALT is elevated 83, this is a change from November 29. Bilirubin and alk-phos are both appropriate Lipase is reassuring Imaging studies independently reviewed: CT scan shows postsurgical changes with drain in the biliary fossa, appropriately positioned, biliary stent appropriately positioned without ductal dilatation. There is a 2 x 1 x 1 cm small amount of fluid in the gallbladder fossa. No obvious free air diverticulitis or other complications or commented upon Consultations: Discussion with Dr. Beckford. Recommended hospitalization, NPO he will evaluate further in the morning. We decided on no antibiotics given lack of fever and lack of leukocytosis Treatments: Fluids, Zofran, hydromorphone Discussion: 48-year-old woman with cholecystectomy, November 25, biliary leak subsequent LUIS drain placement and ERCP with biliary stent. Does not appear that she has had any follow up after the biliary stent was placed and 10 weeks later comes to the emergency department concerned that the color of the fluid in the LUIS drain is changing and she is having increasing abdominal pain. Workup does not suggest acute infection. Fluid from the drain has been cultured. CT scan does not suggest dramatic abnormalities. Patient will be admitted to Dr. Beckford who will re-evaluate in the morning. Hopefully we will simply be able to pull the drain with out additional concerns. Findings and plans reviewed with the patient and her partner questions are answered. Bridging orders are written Discharge Plan Departure Patient Disposition: Admitted as Observation Clinical Impression: Post surgical complication Qualifiers: Surgical complication system/body Area: digestive system Surgical complication type: other Qualified Code(s): K91.89 - Other postprocedural complications and disorders of digestive system Admit Date/Time: 01/27/24 01:52 Admit Provider: Mikey Beckford
[2024-01-26 23:26] LABS: Add Manual Diff / Slide Review NO; Basophils Absolute Auto 100 /uL (0-100); Basophils Percent Auto 0.7 % (0-2); Eosinophils Absolute Auto 500 /uL (0-450); Eosinophils Percent Auto 4.5 % (2-4); Lymphocytes Absolute Auto 3400 /uL (1100-4500); Lymphocytes Percent Auto 32.6 % (25-40); Mean Corpuscular HGB Conc 33.2 % (30-36); Mean Corpuscular Hemoglobin 29.3 PG (26-34); Mean Corpuscular Volume 88.3 fL (80-100); Monocytes Absolute Auto 800 /uL (0-900); Monocytes Percent Auto 7.8 % (3-14); Neutrophils Absolute Auto 5700 /uL (1500-7000); Neutrophils Percent Auto 54.4 % (50-75); Platelet Count 335 X10^3/uL (150-400); Red Blood Cell Count 4.08 X10^6/uL (4.0-5.2); Red Cell Distribution Width 15.2 % (11.6-14.8); White Blood Cell Count 10.5 X10^3/uL (4.5-11.0)
--- NOTE | 2024-01-26 23:32 | DI.CT.S_ITS ---
PROCEDURE: CT ABDOMEN PELVIS W CON INDICATIONS: abdominal pain TECHNIQUE: After the administration of intravenous contrast, axial sections acquired from the lung bases to the pubic symphysis. Coronal and sagittal reformats were performed. For radiation dose reduction, the following was used: automated exposure control, adjustment of mA and/or kV according to patient size. COMPARISON: [facility], CT, CT ABDOMEN PELVIS W CON, 07/28/2023, 0:49. FINDINGS: Image quality: Diagnostic. Lower Chest: No significant findings. ABDOMEN: Liver: No solid mass. Gallbladder: Status post interval cholecystectomy. A percutaneous drain is seen with tip in the right upper quadrant. There is a small amount of fluid in the gallbladder fossa adjacent to the pre tenia strain measuring 1.7 x 0.8 x 0.8 cm () Biliary ducts: Interval biliary stenting. There is expected pneumobilia. No intrahepatic or extrahepatic biliary ductal dilatation. Pancreas: No ductal dilation. Spleen: Size is within normal limits. Adrenal Glands: No adrenal nodules. Kidneys and Ureters: No hydronephrosis. No solid mass. No complex renal cystic lesion which requires follow up. Stomach and Bowel: Small bowel loops and stomach are unremarkable. Mild colonic stool. Peritoneum: No abnormal intraperitoneal fluid. No free air. Ventral Wall: No significant ventral hernia. Abdominal Nodes: No retroperitoneal or mesenteric adenopathy by size criteria. Vessels: Aorta and inferior vena cava are normal in size. PELVIS: Pelvic Organs: Unremarkable. Bladder: Bladder wall is mildly thickened, but is also under distended. Pelvic Nodes: No enlarged lymph nodes. Miscellaneous: No inguinal hernias are seen. Bones: No aggressive osseous abnormality. IMPRESSION: 1. Postsurgical changes from recent cholecystectomy. Small amount of focal fluid in the gallbladder fossa is likely the a cystic duct remanent although could possibly also represent a small postoperative seroma or a biloma. 2. Biliary stent is in appropriate position. No biliary duct dilatation. 3. Mild bladder wall thickening is likely related to underdistention versus cystitis. Approved by: Adolfo Pineda M.D. on 01/27/2024 at 1:28
[2024-01-26 23:44] LABS: Alanine Aminotransferase 83 IU/L (<35); Albumin Globulin Ratio 1.2 (1.0-2.8); Alkaline Phosphatase 111 U/L (38-126); Aspartate Aminotransferase 102 IU/L (14-36); BUN Creatinine Ratio 27.8 (6-22); Bilirubin Total 0.5 mg/dL (0.2-1.3); Blood Urea Nitrogen 15 mg/dL (7-17); Calcium 8.5 mg/dL (8.4-10.2); Carbon Dioxide 23 mmol/L (22-32); Chloride 107 mmol/L (98-107); Estimated Glomerular Filt Rate > 60 mL/min (>60); Globulin 3.3 g/dL (1.7-4.1); Glucose 107 mg/dL (70-100); HEMOLYSIS < 15 (0-50); Lipase 106 U/L (23-300); Potassium 3.4 mmol/L (3.4-5.1); Sodium 136 mmol/L (137-145); Total Protein 7.3 g/dL (6.3-8.2)
[2024-01-26] MEDS: HYDROMORPHONE 0.5 MG INJ IV (23:50)
[2024-01-26] MEDS: ONDANSETRON 4 MG/2 ML INJ IV (23:51)
[2024-01-26] MEDS: SODIUM CHLORIDE 0.9% 1,000 ML 1000 ML IV (23:51)
[2024-01-27 00:24] LABS: Appearance Urine UA CLEAR; Bilirubin Urine UA NEGATIVE (NEGATIVE); Color Urine UA YELLOW; Glucose Urine UA NEGATIVE (Negative); Ketones Urine UA NEGATIVE (NEGATIVE); Leukocyte Esterase Urine UA NEGATIVE (NEGATIVE); Nitrite Urine UA NEGATIVE (Negative); Occult Blood Urine UA 1+ (Negative); Protein Urine UA NEGATIVE (Negative); Specific Gravity Urine UA <=1.005 (1.000-1.035); Urobilinogen Urine UA 0.2 E.U./dL (0.2)
[2024-01-27 00:29] LABS: pH Urine UA 6.5 (4.5-8.0)
[2024-01-27 00:32] LABS: Bacteria Urine None Seen; Culture Indicated Urine Cult Not Indicated; RBC Urine 0-1/HPF (0-5/HPF); Squamous Epithelial Cell Urine 0-1 /HPF (0-5/HPF); Urine Volume 10mL (spun); WBC Urine None Seen (0-5/HPF)
[2024-01-27] MEDS: HYDROMORPHONE 0.5 MG INJ IV ×2 (01:35→07:55)
[2024-01-27 02:55] VITALS: BP 115/52; PULSE 90; RESP 18; O2SAT 100
[2024-01-27] MEDS: SODIUM CHLORIDE 0.9% 1,000 ML 125 ML IV (02:55)
[2024-01-27 02:56] VITALS: BMI 34.0
--- NOTE | 2024-01-27 03:29 | PC.NURSE ---
rec'd pt from ED via w/c awake and alert; right abd LUIS in place w/ purulent del real drainage; bruising around umbilicus that pt reports has been present for 8 months; BLE edematous from ankles to knees, dry and peeling; MRSA swab sent to lab; iv to RAC w/ NS@125ml/hr; pt reports mild to moderate cramping abd pain in a band across the abdomen at the level of the umbilicus, that does not radiate through the back
[2024-01-27 04:47] LABS: MRSA (Nasal) PCR NOT DETECTED (Not Detect)
[2024-01-27 07:00] VITALS: BP 89/49; PULSE 71; RESP 17; TEMP 36.6; O2SAT 95
[2024-01-27] MEDS: NICOTINE 21 MG PATCH TOP (08:04)
[2024-01-27] MEDS: SODIUM CHLORIDE 0.9% FLUSH 10 ML IV (08:05)
--- NOTE | 2024-01-27 08:20 | PM.HP.1 ---
History of Present Illness History of Present Illness Date Patient Seen: 01/27/24 Time Patient Seen: 08:20 Chief complaint: ABD infection with pain Narrative: Laura Torres is a 48-year-old woman who underwent a laparoscopic subtotal cholecystectomy November 2023 for chronic cholecystitis. She had a drain placement however her cystic duct did not spontaneously closed and she had a ERCP performed at [facility] December 09. She was supposed to returned to the surgical clinic for drain removal but has not followed for concerned that it might hurt when the drain is removed. She presented to the [facility] Emergency Department 01/25 with abdominal pain. The emergency room provider was concerned that the drain which has been in place for the past 2 months appeared infected looking and the patient was admitted. On admission afebrile white blood cell count 10 CT abdomen pelvis unremarkable. [facility] Medical History (Updated 01/27/24 @ 08:24 by Drake Luo MD) Post surgical complication Rheumatoid arthritis Substance abuse Surgical History No pertinent past surgical history Social History household members: family Smoking Status: Current every day smoker alcohol intake: former substance use type: painkillers Meds Home Medications and Allergies Allergies Allergy/AdvReac Type Severity Reaction Status Date / Time cyclobenzaprine Allergy Unknown Verified 12/02/23 10:11 [From FLEXERIL] methocarbamol [METHOCARBAMOL] Allergy Unknown Verified 12/02/23 10:11 tramadol [TRAMADOL] Allergy Unknown Verified 12/02/23 10:11 propoxyphene Allergy Verified 12/02/23 10:11 [From Darvocet-N] Exam Vital Signs (past 8 hours): - 01/27/24 02:55 01/27/24 02:56 01/27/24 07:00 Temperature 97.9 F Pulse Rate 90 71 Respiratory Rate 18 17 Blood Pressure 115/52 L 89/49 L Pulse Oximetry 100 95 Oxygen Delivery Method Room Air Room Air Oxygen Flow Rate 0 01/27/24 07:00 Temperature Pulse Rate Respiratory Rate Blood Pressure Pulse Oximetry Oxygen Delivery Method Room Air Oxygen Flow Rate Oxygen Delivery Method Room Air Oxygen Flow Rate 0 Narrative Exam Narrative: General adult woman alert oriented no acute distress Chest nonlabored respiration Abdomen LUIS drain in place no evidence of infection its appearance is consistent with a chronic indwelling surgical drain. Objective Labs 01/26/24 23:20 01/26/24 23:20 Labs: Laboratory Results - last 24 hr 01/26/24 01/27/24 01/27/24 23:20 00:07 03:00 WBC 10.5 RBC 4.08 Hgb 12.0 Hct 36.0 MCV 88.3 MCH 29.3 MCHC 33.2 RDW 15.2 H Plt Count 335 Neut % (Auto) 54.4 Lymph % (Auto) 32.6 [place] % (Auto) 7.8 Eos % (Auto) 4.5 H Baso % (Auto) 0.7 Neut # (Auto) 5700 Lymph # (Auto) 3400 [place] # (Auto) 800 Eos # (Auto) 500 H Baso # (Auto) 100 Sodium 136 L Potassium 3.4 Chloride 107 Carbon Dioxide 23 BUN 15 Creatinine 0.54 Estimated GFR > 60 BUN/Creatinine Ratio 27.8 H Glucose 107 H Calcium 8.5 Magnesium 2.0 Total Bilirubin 0.5 AST 102 H ALT 83 H Alkaline Phosphatase 111 Total Protein 7.3 Albumin 4.0 Globulin 3.3 Albumin/Globulin Ratio 1.2 Lipase 106 Urine Color Yellow Urine Appearance Clear Urine pH 6.5 Ur Specific [place] <=1.005 Urine Protein Negative Urine Glucose (UA) Negative Urine Ketones Negative Urine Occult Blood 1+ H Urine Nitrate Negative Urine Bilirubin Negative Urine Urobilinogen 0.2 Ur Leukocyte Esterase Negative Urine RBC 0-1/hpf Urine WBC None seen Ur Squamous Epith Cells 0-1 /hpf Urine Bacteria None seen Ur Culture Indicated? Cult not indicated Vol Urine Centrifuged 10ml (spun) Nasal Screen MRSA (PCR) Not detected Assessment & Plan Assessment and plan (1) Abdominal pain: Status: Acute Assessment & Plan narrative: 48-year-old woman status post subtotal cholecystectomy for chronic cholecystitis 2 months ago with subsequent ERCP for stent placement who is admitted with abdominal pain. Apparently there was a question as to whether the drain appeared infected or not. On my examination there is no evidence of infection. The drain should have been removed weeks ago the patient did not follow up. No leukocytosis CT abdomen pelvis unremarkable. Drain removed and she may safely discharged home.
== END 2024-01-27 08:55 | disposition home or self-care (01) ==
LOC: ED 22:59 → AC 01-27 01:53 → ICU 01-27 02:04
PROVIDERS: Admitting Provider Surgery; Emergency Provider Emergency Medicine; Referring Provider Emergency Medicine; Visit Provider Surgery
DX: R10.11 Right upper quadrant pain (principal); R10.32 Left lower quadrant pain; Z48.03 Encounter for change or removal of drains; Z90.49 Acquired absence of other specified parts of digestive tract
CPT/HCPCS: 74177; 80053; 81001; 81003; 81015; 83690; 83735; 85025; 87070; 87075; 87077; 87186; 87205; 87797; 96374; 96375; 96376; 99281; 99284; G0378; J1170; J2405; Q9967

== ENCOUNTER 2024-01-27 20:40 | Emergency (ER) | payer MEDICARE, MEDICAID, SELFPAY ==
[2024-01-27 02:56] VITALS: BMI 34.0
[2024-01-27 20:59] VITALS: BP 134/59; PULSE 90; RESP 18; TEMP 37.1; O2SAT 99; BMI 34.0
[2024-01-27 22:49] VITALS: BP 124/58; PULSE 92; RESP 20; O2SAT 100
[2024-01-27 23:00] VITALS: BP 110/56; PULSE 83; O2SAT 99
[2024-01-27 23:30] VITALS: BP 121/56; PULSE 85; RESP 20; O2SAT 96
[2024-01-28] VITALS: PULSE 81; O2SAT 99
[2024-01-28 00:01] VITALS: BP 107/51; PULSE 86; O2SAT 100
[2024-01-28 00:30] VITALS: PULSE 86; RESP 18; O2SAT 99
[2024-01-28 00:31] VITALS: BP 104/59; PULSE 84; RESP 17; O2SAT 98
[2024-01-28 01:00] VITALS: PULSE 91; O2SAT 96
[2024-01-28 01:01] VITALS: BP 111/54; PULSE 92; O2SAT 98
[2024-01-28 01:42] LABS: Bacteria Urine Occasional (0-1); Culture Indicated Urine Cult Not Indicated; RBC Urine 1-5/HPF (0-5/HPF); Squamous Epithelial Cell Urine 0-1 /HPF (0-5/HPF); Urine Volume 10mL (spun); WBC Urine None Seen (0-5/HPF)
== END 2024-01-28 02:23 | disposition left against medical advice (07) ==
PROVIDERS: Emergency Provider Emergency Medicine
DX: R10.9 Unspecified abdominal pain (principal)